=== PATIENT | female | born 1950 | race Caucasian/White ===

== ENCOUNTER 2019-09-25 16:45 | Inpatient (IN) | payer OTHER ==
--- OUTSIDE RECORDS SUMMARY | 2019-09-25 16:48 | XMS REPORT ---
:1950 [facility] [address] [place] [address] [place] [id number] Care Team Providers Name Role Phone AMYMARCOS LaneJAYLA BARNES Unavailable Unavailable TATE EVANS Unavailable Unavailable Payers Payer Name Policy Type Policy Number Effective Date Expiration Date Problems This patient has no known problems. Allergies, Adverse Reactions, Alerts This patient has no known allergies or adverse reactions. Medications This patient has no known medications. Results Test Description Test Time Test Comments Text Results Atomic Results Result Comments CBC W/PLT COUNT & AUTO DIFFERENTIAL 2018-03-22 06:22:00 Test Item Value Reference Range Comments WHITE BLOOD CELL COUNT (BEAKER) (test rmjk=558) 13.4 K/ L 3.5-10.5 RED BLOOD CELL COUNT (BEAKER) (test miad=804) 3.50 M/ L 3.93-5.22 HEMOGLOBIN (BEAKER) (test nczg=400) 10.1 GM/DL 11.2-15.7 HEMATOCRIT (BEAKER) (test ydba=813) 31.3 % 34.1-44.9 MEAN CORPUSCULAR VOLUME (BEAKER) (test jleq=417) 89.4 fL 79.4-94.8 MEAN CORPUSCULAR HEMOGLOBIN (BEAKER) (test zrdq=501) 28.9 pg 25.6-32.2 MEAN CORPUSCULAR HEMOGLOBIN CONC (BEAKER) (test nmod=450) 32.3 GM/DL 32.2- 35.5 RED CELL DISTRIBUTION WIDTH (BEAKER) (test isdd=562) 15.1 % 11.7-14.4 PLATELET COUNT (BEAKER) (test xhda=112) 179 K/CU MM 150-450 MEAN PLATELET VOLUME (BEAKER) (test judl=538) 11.9 fL 9.4-12.3 NUCLEATED RED BLOOD CELLS (BEAKER) (test hmjs=066) 0 /100 WBC 0-0 NEUTROPHILS RELATIVE PERCENT (BEAKER) (test vieq=537) 68 % LYMPHOCYTES RELATIVE PERCENT (BEAKER) (test tabs=067) 22 % MONOCYTES RELATIVE PERCENT (BEAKER) (test ivdh=523) 7 % EOSINOPHILS RELATIVE PERCENT (BEAKER) (test xntz=711) 2 % BASOPHILS RELATIVE PERCENT (BEAKER) (test kxgx=224) 0 % NEUTROPHILS ABSOLUTE COUNT (BEAKER) (test epth=795) 9.12 K/ L 1.56-6.13 LYMPHOCYTES ABSOLUTE COUNT (BEAKER) (test ucbf=566) 2.99 K/ L 1.18-3.74 MONOCYTES ABSOLUTE COUNT (BEAKER) (test jtza=113) 0.89 K/ L 0.24-0.36 EOSINOPHILS ABSOLUTE COUNT (BEAKER) (test xrnk=540) 0.31 K/ L 0.04-0.36 BASOPHILS ABSOLUTE COUNT (BEAKER) (test shzo=564) 0.03 K/ L 0.01-0.08 IMMATURE GRANULOCYTES-RELATIVE PERCENT (BEAKER) (test 0 % 0-1 zrop=6405) [id number] 06:11:00 Test Item Value Reference Range Comments MAGNESIUM (BEAKER) (test beqv=906) 1.9 mg/dL 1.6-2.6 BASIC METABOLIC [id number] 06:11:00 Test Item Value Reference Range Comments SODIUM (BEAKER) (test 139 meq/L 136-145 rvcn=060) POTASSIUM (BEAKER) (test 3.4 meq/L 3.5-5.1 ofql=348) CHLORIDE (BEAKER) (test 108 meq/L 98-107 feba=261) CO2 (BEAKER) (test 24 meq/L 22-29 sjpn=230) BLOOD UREA NITROGEN 8 mg/dL 7-21 (BEAKER) (test iayc=176) CREATININE (BEAKER) (test 0.84 mg/dL 0.57-1.25 evrz=245) GLUCOSE RANDOM (BEAKER) 91 mg/dL 70-105 (test mfpc=318) CALCIUM (BEAKER) (test 8.9 mg/dL 8.4-10.2 oais=463) EGFR (BEAKER) (test 68 mL/min/1.73 sq m ESTIMATED GFR IS NOT gvqt=2510) ACCURATE CREATININE CLEARANCE IN PREDICTING GLOMERULAR FILTRATION RATE. ESTIMATED GFR IS NOT APPLICABLE FOR DIALYSIS PATIENTS. [id number] 05:42:00 Test Item Value Reference Range Comments PARTIAL THROMBOPLASTIN TIME (BEAKER) (test 57.1 seconds 22.5-36.0 viyu=274) PROTHROMBIN TIME/[id number] 05:41:00 Test Item Value Reference Range Comments PROTIME (BEAKER) (test bfba=578) 15.0 seconds 11.7-14.7 INR (BEAKER) (test egzf=064) 1.2 <=5.9 RECOMMENDED COUMADIN/WARFARIN INR THERAPY RANGESSTANDARD DOSE: 2.0 - 3.0 Includes: PROPHYLAXIS forvenous thrombosis, systemic embolization; TREATMENT for venous thrombosis and/or pulmonary embolus.HIGH RISK: Target INR is 2.5-3.5 for patients with mechanical heart valves.RAD, CHEST, 1 VIEW, NON [id number] 05:05:00Reason for exam:->ptxShould this be performed at the bedside?-> YesFINAL REPORT Chest one view. Clinical history: Pneumothorax Comparison: Chest radiograph 03/21/2018 Technique: A single frontal view of the chest was obtained. Findings: Again seen is subcutaneous emphysema in the bilateral lower neck and bilateral chest wren. There is pneumomediastinum, grossly unchanged. There is mild diffuse bilateral interstitial prominence for which interstitial edema cannot be excluded. There is no pneumothorax or pleural effusion. The heart is normal size. The aorta is uncoiled. Signed: Mariela Moya MDReport Verified Date/Time: 03/22/2018 05: 05:40 Reading Location: [address] Transitional Reading Room RAD, CHEST, 1 VIEW, NON [id number] 07:26:00Reason for exam:->ptxShould this be performed at the bedside?->YesFINAL REPORT INDICATION: ptx COMPARISON: March 20, 2018 TECHNIQUE: Chest radiograph, single view, portable technique. FINDINGS / IMPRESSION: Pneumomediastinum and neck subcutaneousemphysema again demonstrated. No discrete pneumothorax. Cardiac and mediastinal contours unremarkable. No pulmonary edema, consolidation, or large pleural effusion. Signed: Robbin Villegas MDReport Verified Date/Time: 2017 07:26:14 Reading Location: [address] Ortho Consult Reading Room CBC W/PLT COUNT & AUTO [id number] 06:21:00 Test Item Value Reference Range Comments WHITE BLOOD CELL COUNT (BEAKER) (test ycfv=606) 16.0 K/ L 3.5-10.5 RED BLOOD CELL COUNT (BEAKER) (test xrof=439) 3.40 M/ L 3.93-5.22 HEMOGLOBIN (BEAKER) (test gshr=576) 9.7 GM/DL 11.2-15.7 HEMATOCRIT (BEAKER) (test wimk=918) 30.6 % 34.1-44.9 MEAN CORPUSCULAR VOLUME (BEAKER) (test tlar=181) 90.0 fL 79.4-94.8 MEAN CORPUSCULAR HEMOGLOBIN (BEAKER) (test 28.5 pg 25.6-32.2 nmml=438) MEAN CORPUSCULAR HEMOGLOBIN CONC (BEAKER) (test 31.7 GM/DL 32.2-35.5 joiy=100) RED CELL DISTRIBUTION WIDTH (BEAKER) (test 15.0 % 11.7-14.4 ebkm=647) PLATELET COUNT (BEAKER) (test abow=452) 180 K/CU MM 150-450 MEAN PLATELET VOLUME (BEAKER) (test nnqj=081) 11.8 fL 9.4-12.3 NUCLEATED RED BLOOD CELLS (BEAKER) (test 0 /100 WBC 0-0 taxf=383) NEUTROPHILS RELATIVE PERCENT (BEAKER) (test 82 % emgc=394) LYMPHOCYTES RELATIVE PERCENT (BEAKER) (test 12 % iein=020) MONOCYTES RELATIVE PERCENT (BEAKER) (test 5 % redb=782) EOSINOPHILS RELATIVE PERCENT (BEAKER) (test 0 % tpdo=320) BASOPHILS RELATIVE PERCENT (BEAKER) (test 0 % floh=183) NEUTROPHILS ABSOLUTE COUNT (BEAKER) (test 13.01 K/ L 1.56-6.13 fziu=133) LYMPHOCYTES ABSOLUTE COUNT (BEAKER) (test 1.93 K/ L 1.18-3.74 rvag=950) MONOCYTES ABSOLUTE COUNT (BEAKER) (test 0.87 K/ L 0.24-0.36 whmw=022) EOSINOPHILS ABSOLUTE COUNT (BEAKER) (test 0.07 K/ L 0.04-0.36 bfth=239) BASOPHILS ABSOLUTE COUNT (BEAKER) (test 0.03 K/ L 0.01-0.08 dnkq=206) IMMATURE GRANULOCYTES-RELATIVE PERCENT (BEAKER) 0 % 0-1 (test mmwl=5351) [id number] 06:04:00 Test Item Value Reference Range Comments MAGNESIUM (BEAKER) (test kvpp=398) 2.1 mg/dL 1.6-2.6 BASIC METABOLIC [id number] 06:04:00 Test Item Value Reference Range Comments SODIUM (BEAKER) (test 136 meq/L 136-145 pqyu=477) POTASSIUM (BEAKER) (test 3.4 meq/L 3.5-5.1 fslp=539) CHLORIDE (BEAKER) (test 107 meq/L 98-107 mcud=507) CO2 (BEAKER) (test 23 meq/L 22-29 ycwd=882) BLOOD UREA NITROGEN 15 mg/dL 7-21 (BEAKER) (test suoy=959) CREATININE (BEAKER) (test 1.00 mg/dL 0.57-1.25 fvwl=463) GLUCOSE RANDOM (BEAKER) 130 mg/dL 70-105 (test cdty=160) CALCIUM (BEAKER) (test 8.5 mg/dL 8.4-10.2 ncqr=802) EGFR (BEAKER) (test 55 mL/min/1.73 sq m ESTIMATED GFR IS NOT yhys=4137) ACCURATE CREATININE CLEARANCE IN PREDICTING GLOMERULAR FILTRATION RATE. ESTIMATED GFR IS NOT APPLICABLE FOR DIALYSIS PATIENTS. [id number] 05:26:00 Test Item Value Reference Range Comments PARTIAL THROMBOPLASTIN TIME (BEAKER) (test 50.3 seconds 22.5-36.0 xelr=412) PROTHROMBIN TIME/[id number] 05:25:00 Test Item Value Reference Range Comments PROTIME (RONEY) (test ezgy=759) 15.9 seconds 11.7-14.7 INR (BEAKER) (test qtlj=114) 1.3 <=5.9 RECOMMENDED COUMADIN/WARFARIN INR THERAPY RANGESSTANDARD DOSE: 2.0 - 3.0 Includes: PROPHYLAXIS forvenous thrombosis, systemic embolization; TREATMENT for venous thrombosis and/or pulmonary embolus.HIGH RISK: Target INR is 2.5-3.5 for patients with mechanical heart valves.FL, ESOPH, SWALLOW FUNCTION, WITH CINE OR [id number] 14:33:00Reason for exam:->s/p heller myotomy, kayleigh fundoplication before noon per Dr. Morelos, kevan notneed [employer] TEACHER for this examFINAL REPORT INDICATION:67-year-old female status post Heller myotomy and gastric fundoplication yesterday. Evaluate for leak. COMPARISON: None. TECHNIQUE: Fluoroscopic esophagram single contrast with Gastrografin.Fluoroscopy time 0.6 minutes.Acquired fluoroscopic images 7. FINDINGS:The patient was positioned supine in slight reverse Trendelenburg on the fluoroscopy table. The patient was administered 120 cc of Gastrografin by mouth. Contrast passed through the esophagus and through the wrap at the GE junction. No extraluminal contrast demonstrated. A few tertiary contractions noted. IMPRESSION:No evidence of leak after esophageal myotomy. Intact gastric wrap. Signed: Robbin Villegas MDReport Verified Date/Time: 03/20/2018 14:33: 42 Reading Location: [address] Ortho Consult Reading Room RAD, CHEST, 1 VIEW, NON [id number] 07:18:00Reason for exam:->ptxShould this be performed at the bedside?->YesFINAL REPORT Chest one view AP 03/20/2018 7:17 AM CLINICAL INDICATION: ptx COMPARISON: 03/19/2018 IMPRESSION: There are small volume right greater than left apical pneumothoraces. Subsegmental opacities in both mid and lower lung suggest atelectasis. There is pneumomediastinum. Cardiomediastinal contours are within normal limits for size. The central pulmonary vasculature is not engorged. There is subcutaneous emphysema in the overlying soft tissue. Signed: Scott Buchanan Verified Date/Time: 03/20/2018 07:18:12 Reading Location: [facility] Radiology Reading Room CBC W/PLT COUNT & AUTO [id number] 05: 56:00 Test Item Value Reference Range Comments WHITE BLOOD CELL COUNT (BEAKER) (test uxll=488) 14.4 K/ L 3.5-10.5 RED BLOOD CELL COUNT (BEAKER) (test enmd=385) 3.67 M/ L 3.93-5.22 HEMOGLOBIN (BEAKER) (test ekni=048) 10.4 GM/DL 11.2-15.7 HEMATOCRIT (BEAKER) (test sknu=353) 33.7 % 34.1-44.9 MEAN CORPUSCULAR VOLUME (BEAKER) (test mzpp=854) 91.8 fL 79.4-94.8 MEAN CORPUSCULAR HEMOGLOBIN (BEAKER) (test 28.3 pg 25.6-32.2 lcip=261) MEAN CORPUSCULAR HEMOGLOBIN CONC (BEAKER) (test 30.9 GM/DL 32.2-35.5 trmo=394) RED CELL DISTRIBUTION WIDTH (BEAKER) (test 15.0 % 11.7-14.4 kzby=486) PLATELET COUNT (BEAKER) (test jldf=735) 178 K/CU MM 150-450 MEAN PLATELET VOLUME (BEAKER) (test gxke=105) 11.9 fL 9.4-12.3 NUCLEATED RED BLOOD CELLS (BEAKER) (test 0 /100 WBC 0-0 ycpx=561) NEUTROPHILS RELATIVE PERCENT (BEAKER) (test 87 % ipse=369) LYMPHOCYTES RELATIVE PERCENT (BEAKER) (test 7 % xqde=634) MONOCYTES RELATIVE PERCENT (BEAKER) (test 5 % iptu=041) EOSINOPHILS RELATIVE PERCENT (BEAKER) (test 0 % gdtj=690) BASOPHILS RELATIVE PERCENT (BEAKER) (test 0 % muxd=305) NEUTROPHILS ABSOLUTE COUNT (BEAKER) (test 12.54 K/ L 1.56-6.13 cnfi=620) LYMPHOCYTES ABSOLUTE COUNT (BEAKER) (test 1.05 K/ L 1.18-3.74 czzv=873) MONOCYTES ABSOLUTE COUNT (BEAKER) (test 0.72 K/ L 0.24-0.36 tnzs=258) EOSINOPHILS ABSOLUTE COUNT (BEAKER) (test 0.00 K/ L 0.04-0.36 egtw=211) BASOPHILS ABSOLUTE COUNT (BEAKER) (test 0.02 K/ L 0.01-0.08 jatl=336) IMMATURE GRANULOCYTES-RELATIVE PERCENT (BEAKER) 0 % 0-1 (test zlim=5842) [id number] 05:52:00 Test Item Value Reference Range Comments MAGNESIUM (BEAKER) (test ychj=114) 2.1 mg/dL 1.6-2.6 BASIC METABOLIC [id number] 05:52:00 Test Item Value Reference Range Comments SODIUM (BEAKER) (test 138 meq/L 136-145 ooad=561) POTASSIUM (BEAKER) (test 4.2 meq/L 3.5-5.1 aevs=688) CHLORIDE (BEAKER) (test 109 meq/L 98-107 roli=483) CO2 (BEAKER) (test 20 meq/L 22-29 wazn=531) BLOOD UREA NITROGEN 17 mg/dL 7-21 (BEAKER) (test zfqa=806) CREATININE (BEAKER) (test 1.07 mg/dL 0.57-1.25 gphy=706) GLUCOSE RANDOM (BEAKER) 113 mg/dL 70-105 (test wgvs=695) CALCIUM (BEAKER) (test 8.5 mg/dL 8.4-10.2 yirg=398) EGFR (BEAKER) (test 51 mL/min/1.73 sq m ESTIMATED GFR IS NOT dwsa=6404) ACCURATE CREATININE CLEARANCE IN PREDICTING GLOMERULAR FILTRATION RATE. ESTIMATED GFR IS NOT APPLICABLE FOR DIALYSIS PATIENTS. PROTHROMBIN [id number] 05:28:00 Test Item Value Reference Range Comments PROTIME (BEAKER) (test hdek=278) 15.5 seconds 11.7-14.7 INR (BEAKER) (test mujk=284) 1.2 <=5.9 RECOMMENDED COUMADIN/WARFARIN INR THERAPY RANGESSTANDARD DOSE: 2.0 - 3.0 Includes: PROPHYLAXIS forvenous thrombosis, systemic embolization; TREATMENT for venous thrombosis and/or pulmonary embolus.HIGH RISK: Target INR is 2.5-3.5 for patients with mechanical heart valves.[id number] 05:28:00 Test Item Value Reference Range Comments PARTIAL THROMBOPLASTIN TIME (BEAKER) (test 32.3 seconds 22.5-36.0 bufu=776) BLOOD GAS, [id number] 05:25:00 Test Item Value Reference Range Comments PH ARTERIAL (BEAKER) (test nvda=972) 7.38 7.35-7.45 PCO2 ARTERIAL (BEAKER) (test wijr=071) 38 mmHg 35-45 PO2 ARTERIAL (BEAKER) (test lkjc=348) 149 mmHg 80-90 O2 SATURATION ARTERIAL (BEAKER) (test caoh=122) 98.9 % 96.0-97.0 HCO3 ARTERIAL (BEAKER) (test txgf=521) 22 mmol/L 21-29 BASE EXCESS ARTERIAL (BEAKER) (test iyvd=108) -2.6 mmol/L -2.0-3.0 PATIENT TEMPERATURE (BEAKER) (test wcwl=5301) 37.0 C FIO2 (BEAKER) (test wsba=0257) 28.0 % RAD, CHEST, 1 VIEW, NON [id number] 23:59:00[facility]->postop CXRShould this be performed at the bedside?-> YesFINAL REPORT Chest one view. Clinical history: postop CXR Comparison: March Discussion: A frontal chest is provided. Cardiomediastinal contours are unchanged. Subcutaneous emphysema is noted in the lower neck and bilateral anterior chest wall. There is also pneumomediastinum and probable mild pneumopericardium. There is a small right apical pneumothorax. No definite pneumothorax is seen on the left. Mild bibasilar atelectasis is present. No discrete consolidation, or large effusion. No acute bony abnormality. Findings discussed with patient's nurse Gauri. Signed:Roldan Persaud Verified Date/Time: 03/19/2018 23:59:46 Reading Location: [address] Consult Reading Room [id number] 19:21:00 Test Item Value Reference Range Comments MAGNESIUM (BEAKER) (test isix=397) 2.0 mg/dL 1.6-2.6 BASIC METABOLIC [id number] 19:21:00 Test Item Value Reference Range Comments SODIUM (BEAKER) (test 139 meq/L 136-145 zehk=205) POTASSIUM (BEAKER) (test 3.8 meq/L 3.5-5.1 nbzi=556) CHLORIDE (BEAKER) (test 110 meq/L 98-107 vfgq=277) CO2 (BEAKER) (test 19 meq/L 22-29 kujf=172) BLOOD UREA NITROGEN 15 mg/dL 7-21 (BEAKER) (test snfe=641) CREATININE (BEAKER) (test 1.14 mg/dL 0.57-1.25 zfer=387) GLUCOSE RANDOM (BEAKER) 133 mg/dL 70-105 (test kzaa=451) CALCIUM (BEAKER) (test 8.2 mg/dL 8.4-10.2 qtli=556) EGFR (BEAKER) (test 48 mL/min/1.73 sq m ESTIMATED GFR IS NOT awmf=4279) ACCURATE CREATININE CLEARANCE IN PREDICTING GLOMERULAR FILTRATION RATE. ESTIMATED GFR IS NOT APPLICABLE FOR DIALYSIS PATIENTS. [id number] 19:12:00 Test Item Value Reference Range Comments PARTIAL THROMBOPLASTIN TIME (BEAKER) (test 30.1 seconds 22.5-36.0 wecd=602) PROTHROMBIN [id number] 19:11:00 Test Item Value Reference Range Comments PROTIME (BEAKER) (test coqo=430) 15.6 seconds 11.7-14.7 INR (BEAKER) (test clrr=011) 1.2 <=5.9 RECOMMENDED COUMADIN/WARFARIN INR THERAPY RANGESSTANDARD DOSE: 2.0 - 3.0 Includes: PROPHYLAXIS forvenous thrombosis, systemic embolization; TREATMENT for venous thrombosis and/or pulmonary embolus.HIGH RISK: Target INR is 2.5-3.5 for patients with mechanical heart valves.CBC W/PLT COUNT & AUTO [id number] 19:07:00 Test Item Value Reference Range Comments WHITE BLOOD CELL COUNT (BEAKER) (test qwat=703) 14.7 K/ L 3.5-10.5 RED BLOOD CELL COUNT (BEAKER) (test qxjr=879) 3.64 M/ L 3.93-5.22 HEMOGLOBIN (BEAKER) (test avyb=239) 10.4 GM/DL 11.2-15.7 HEMATOCRIT (BEAKER) (test jpvd=316) 32.8 % 34.1-44.9 MEAN CORPUSCULAR VOLUME (BEAKER) (test gntz=514) 90.1 fL 79.4-94.8 MEAN CORPUSCULAR HEMOGLOBIN (BEAKER) (test 28.6 pg 25.6-32.2 zeir=829) MEAN CORPUSCULAR HEMOGLOBIN CONC (BEAKER) (test 31.7 GM/DL 32.2-35.5 wphn=214) RED CELL DISTRIBUTION WIDTH (BEAKER) (test 14.8 % 11.7-14.4 numo=159) PLATELET COUNT (BEAKER) (test fjbf=361) 169 K/CU MM 150-450 MEAN PLATELET VOLUME (BEAKER) (test kplt=128) 11.1 fL 9.4-12.3 NUCLEATED RED BLOOD CELLS (BEAKER) (test 0 /100 WBC 0-0 jhba=152) NEUTROPHILS RELATIVE PERCENT (BEAKER) (test 83 % enim=827) LYMPHOCYTES RELATIVE PERCENT (BEAKER) (test 9 % yder=798) MONOCYTES RELATIVE PERCENT (BEAKER) (test 7 % yput=299) EOSINOPHILS RELATIVE PERCENT (BEAKER) (test 0 % ysed=450) BASOPHILS RELATIVE PERCENT (BEAKER) (test 0 % aury=993) NEUTROPHILS ABSOLUTE COUNT (BEAKER) (test 12.22 K/ L 1.56-6.13 zvtd=518) LYMPHOCYTES ABSOLUTE COUNT (BEAKER) (test 1.30 K/ L 1.18-3.74 nifc=416) MONOCYTES ABSOLUTE COUNT (BEAKER) (test 1.06 K/ L 0.24-0.36 ugpd=089) EOSINOPHILS ABSOLUTE COUNT (BEAKER) (test 0.06 K/ L 0.04-0.36 yuxi=843) BASOPHILS ABSOLUTE COUNT (BEAKER) (test 0.02 K/ L 0.01-0.08 zgxr=689) IMMATURE GRANULOCYTES-RELATIVE PERCENT (BEAKER) 0 % 0-1 (test qwxl=5732) CALCIUM, [id number] 18:57:00 Test Item Value Reference Range Comments CALCIUM IONIZED (BEAKER) (test kscw=178) 1.07 mmol/L 1.12-1.27 PH, BLOOD (BEAKER) (test lebq=6646) 7.31 POCT-GLUCOSE [id number] 11:08:00 Test Item Value Reference Range Comments POC-GLUCOSE METER (BEAKER) 98 mg/dL 70-110 TESTED AT [facility] [address] [facility] (test uebp=3644) [place] [address] RAD, CHEST, 2 [id number] 12:11:00Reason for exam:->preopFINAL REPORT PA and lateral chest HISTORY: Preoperative. Dysphagia. GERD. COMPARISON: 05/12/2017 IMPRESSION:Intact skeleton. Heart size normal. New scattered faint nodular opacities throughout both lungs are nonspecific and may reflect an underlying infectious or inflammatory etiology, such as from aspiration pneumonitis. No effusion or pneumothorax. Chest CT can be performed for further characterization. Findings were discussed with Dr. Rodriguez by telephone at 12:10 p.m. on 03/16/2018. Signed: David Lang MDReport Verified Date/Time: 03/16/2018 12:11:07 Reading Location: [address] Radiology Reading Room Electronically signed by: DAVID LANG M.D. on 2017 12:11 PMCOMPREHENSIVE METABOLIC [id number] 12:03:00 Test Item Value Reference Range Comments TOTAL PROTEIN (BEAKER) 7.6 gm/dL 6.0-8.3 (test ygaw=954) ALBUMIN (BEAKER) (test 4.1 g/dL 3.5-5.0 ypth=5483) ALKALINE PHOSPHATASE 88 U/L 40-150 (BEAKER) (test nnzk=202) BILIRUBIN TOTAL (BEAKER) 0.4 mg/dL 0.2-1.2 (test lzzm=308) SODIUM (BEAKER) (test 136 meq/L 136-145 egqg=743) POTASSIUM (BEAKER) (test 4.2 meq/L 3.5-5.1 zxml=415) CHLORIDE (BEAKER) (test 104 meq/L 98-107 irle=775) CO2 (BEAKER) (test 25 meq/L 22-29 ghxg=883) BLOOD UREA NITROGEN 13 mg/dL 7-21 (BEAKER) (test frxl=737) CREATININE (BEAKER) (test 0.98 mg/dL 0.57-1.25 oktd=206) GLUCOSE RANDOM (BEAKER) 88 mg/dL 70-105 (test eveo=933) CALCIUM (BEAKER) (test 9.3 mg/dL 8.4-10.2 jawj=513) AST (SGOT) (BEAKER) (test 14 U/L 5-34 jymh=560) ALT (SGPT) (BEAKER) (test 12 U/L 6-55 hxjo=975) EGFR (BEAKER) (test 57 mL/min/1.73 sq m ESTIMATED GFR IS NOT qbym=8691) ACCURATE CREATININE CLEARANCE IN PREDICTING GLOMERULAR FILTRATION RATE. ESTIMATED GFR IS NOT APPLICABLE FOR DIALYSIS PATIENTS. [id number] 11:54:00 Test Item Value Reference Range Comments PROTIME (BEAKER) (test ojdh=642) 14.6 seconds 11.7-14.7 INR (BEAKER) (test uhjh=366) 1.1 <=5.9 PARTIAL THROMBOPLASTIN TIME (BEAKER) (test 33.3 seconds 22.5-36.0 qflc=809) RECOMMENDED COUMADIN/WARFARIN INR THERAPY RANGESSTANDARD DOSE: 2.0 - 3.0 Includes: PROPHYLAXIS forvenous thrombosis, systemic embolization; TREATMENT for venous thrombosis and/or pulmonary embolus.HIGH RISK: Target INR is 2.5-3.5 for patients with mechanical heart valves.CBC W/PLT COUNT & AUTO [id number] 11:41:00 Test Item Value Reference Range Comments WHITE BLOOD CELL COUNT (BEAKER) (test skyw=162) 9.7 K/ L 3.5-10.5 RED BLOOD CELL COUNT (BEAKER) (test gxuc=152) 4.10 M/ L 3.93-5.22 HEMOGLOBIN (BEAKER) (test qofq=510) 11.6 GM/DL 11.2-15.7 HEMATOCRIT (BEAKER) (test gbfs=792) 36.6 % 34.1-44.9 MEAN CORPUSCULAR VOLUME (BEAKER) (test nscf=816) 89.3 fL 79.4-94.8 MEAN CORPUSCULAR HEMOGLOBIN (BEAKER) (test 28.3 pg 25.6-32.2 bxwd=147) MEAN CORPUSCULAR HEMOGLOBIN CONC (BEAKER) (test 31.7 GM/DL 32.2-35.5 yvna=776) RED CELL DISTRIBUTION WIDTH (BEAKER) (test 14.9 % 11.7-14.4 bcdq=817) PLATELET COUNT (BEAKER) (test viqm=482) 214 K/CU MM 150-450 MEAN PLATELET VOLUME (BEAKER) (test crsm=046) 11.8 fL 9.4-12.3 NUCLEATED RED BLOOD CELLS (BEAKER) (test 0 /100 WBC 0-0 lvyq=626) NEUTROPHILS RELATIVE PERCENT (BEAKER) (test 66 % vkkn=483) LYMPHOCYTES RELATIVE PERCENT (BEAKER) (test 22 % sytz=024) MONOCYTES RELATIVE PERCENT (BEAKER) (test 10 % vumy=136) EOSINOPHILS RELATIVE PERCENT (BEAKER) (test 1 % jysn=918) BASOPHILS RELATIVE PERCENT (BEAKER) (test 1 % mxep=928) NEUTROPHILS ABSOLUTE COUNT (BEAKER) (test 6.45 K/ L 1.56-6.13 xasu=509) LYMPHOCYTES ABSOLUTE COUNT (BEAKER) (test 2.15 K/ L 1.18-3.74 gdom=064) MONOCYTES ABSOLUTE COUNT (BEAKER) (test 0.94 K/ L 0.24-0.36 bkqi=350) EOSINOPHILS ABSOLUTE COUNT (BEAKER) (test 0.09 K/ L 0.04-0.36 kghw=535) BASOPHILS ABSOLUTE COUNT (BEAKER) (test 0.06 K/ L 0.01-0.08 rsmo=208) IMMATURE GRANULOCYTES-RELATIVE PERCENT (BEAKER) 0 % 0-1 (test oqah=2010) BASIC METABOLIC [id number] 06:19:00 Test Item Value Reference Range Comments SODIUM (BEAKER) (test 139 meq/L 136-145 yrtp=156) POTASSIUM (BEAKER) (test 3.9 meq/L 3.5-5.1 oqqe=158) CHLORIDE (BEAKER) (test 109 meq/L 98-107 noor=987) CO2 (BEAKER) (test 22 meq/L 22-29 iyvo=280) BLOOD UREA NITROGEN 14 mg/dL 7-21 (BEAKER) (test wxuq=816) CREATININE (BEAKER) (test 0.87 mg/dL 0.57-1.25 mbba=451) GLUCOSE RANDOM (BEAKER) 95 mg/dL 70-105 (test ztvt=224) CALCIUM (BEAKER) (test 9.2 mg/dL 8.4-10.2 btny=332) EGFR (BEAKER) (test 65 mL/min/1.73 sq m ESTIMATED GFR IS NOT rdle=5931) ACCURATE CREATININE CLEARANCE IN PREDICTING GLOMERULAR FILTRATION RATE. ESTIMATED GFR IS NOT APPLICABLE FOR DIALYSIS PATIENTS. CBC W/PLT COUNT & AUTO [id number] 06:01:00 Test Item Value Reference Range Comments WHITE BLOOD CELL COUNT (BEAKER) (test gctj=894) 8.4 K/ L 4.0-10.0 RED BLOOD CELL COUNT (BEAKER) (test olyk=042) 3.82 M/ L 4.00-5.00 HEMOGLOBIN (BEAKER) (test hifq=689) 11.9 GM/DL 12.0-15.0 HEMATOCRIT (BEAKER) (test eqdp=651) 35.8 % 36.0-45.0 MEAN CORPUSCULAR VOLUME (BEAKER) (test rshk=696) 93.6 fL 82.0-99.0 MEAN CORPUSCULAR HEMOGLOBIN (BEAKER) (test 31.0 pg 27.0-33.0 evtp=324) MEAN CORPUSCULAR HEMOGLOBIN CONC (BEAKER) (test 33.1 GM/DL 32.0-36.0 kcjq=504) RED CELL DISTRIBUTION WIDTH (BEAKER) (test 12.7 % 10.3-14.2 pygc=337) PLATELET COUNT (BEAKER) (test qzts=070) 153 K/CU MM 150-430 MEAN PLATELET VOLUME (BEAKER) (test lojn=043) 8.8 fL 6.5-10.5 NUCLEATED RED BLOOD CELLS (BEAKER) (test 0 /100 WBC 0-0 fgjf=334) NEUTROPHILS RELATIVE PERCENT (BEAKER) (test 54 % rlnz=902) LYMPHOCYTES RELATIVE PERCENT (BEAKER) (test 35 % sadj=507) MONOCYTES RELATIVE PERCENT (BEAKER) (test 8 % igam=131) EOSINOPHILS RELATIVE PERCENT (BEAKER) (test 3 % bqfy=336) BASOPHILS RELATIVE PERCENT (BEAKER) (test 1 % eywe=987) NEUTROPHILS ABSOLUTE COUNT (BEAKER) (test 4.51 K/ L 1.80-8.00 ffuw=239) LYMPHOCYTES ABSOLUTE COUNT (BEAKER) (test 2.94 K/ L 1.48-4.50 sxdf=741) MONOCYTES ABSOLUTE COUNT (BEAKER) (test 0.65 K/ L 0.00-1.30 mpyh=329) EOSINOPHILS ABSOLUTE COUNT (BEAKER) (test 0.26 K/ L 0.00-0.50 fkfl=760) BASOPHILS ABSOLUTE COUNT (BEAKER) (test 0.06 K/ L 0.00-0.20 hxqj=415) 0.00CBC W/PLT COUNT & AUTO [id number] 06:59:00 Test Item Value Reference Range Comments WHITE BLOOD CELL COUNT (BEAKER) (test hooi=062) 9.0 K/ L 4.0-10.0 RED BLOOD CELL COUNT (BEAKER) (test bicx=865) 4.00 M/ L 4.00-5.00 HEMOGLOBIN (BEAKER) (test wmfz=072) 12.2 GM/DL 12.0-15.0 HEMATOCRIT (BEAKER) (test wwdb=574) 37.7 % 36.0-45.0 MEAN CORPUSCULAR VOLUME (BEAKER) (test byia=776) 94.1 fL 82.0-99.0 MEAN CORPUSCULAR HEMOGLOBIN (BEAKER) (test 30.5 pg 27.0-33.0 fwlb=003) MEAN CORPUSCULAR HEMOGLOBIN CONC (BEAKER) (test 32.5 GM/DL 32.0-36.0 lapz=812) RED CELL DISTRIBUTION WIDTH (BEAKER) (test 12.9 % 10.3-14.2 sdqb=177) PLATELET COUNT (BEAKER) (test lfjt=901) 165 K/CU MM 150-430 MEAN PLATELET VOLUME (BEAKER) (test eaxs=007) 9.3 fL 6.5-10.5 NUCLEATED RED BLOOD CELLS (BEAKER) (test 0 /100 WBC 0-0 ydeu=000) NEUTROPHILS RELATIVE PERCENT (BEAKER) (test 56 % krcf=011) LYMPHOCYTES RELATIVE PERCENT (BEAKER) (test 31 % vljr=032) MONOCYTES RELATIVE PERCENT (BEAKER) (test 9 % vgkb=738) EOSINOPHILS RELATIVE PERCENT (BEAKER) (test 3 % iomp=173) BASOPHILS RELATIVE PERCENT (BEAKER) (test 1 % rkhf=451) NEUTROPHILS ABSOLUTE COUNT (BEAKER) (test 5.07 K/ L 1.80-8.00 dghz=551) LYMPHOCYTES ABSOLUTE COUNT (BEAKER) (test 2.78 K/ L 1.48-4.50 cxtf=655) MONOCYTES ABSOLUTE COUNT (BEAKER) (test 0.81 K/ L 0.00-1.30 hlng=479) EOSINOPHILS ABSOLUTE COUNT (BEAKER) (test 0.29 K/ L 0.00-0.50 asky=211) BASOPHILS ABSOLUTE COUNT (BEAKER) (test 0.07 K/ L 0.00-0.20 ukkl=758) 0.00BASIC METABOLIC [id number] 06:39:00 Test Item Value Reference Range Comments SODIUM (BEAKER) (test 137 meq/L 136-145 mlor=476) POTASSIUM (BEAKER) (test 4.1 meq/L 3.5-5.1 mznu=348) CHLORIDE (BEAKER) (test 108 meq/L 98-107 oeta=407) CO2 (BEAKER) (test 23 meq/L 22-29 cxag=302) BLOOD UREA NITROGEN 14 mg/dL 7-21 (BEAKER) (test uqyn=958) CREATININE (BEAKER) (test 0.86 mg/dL 0.57-1.25 mjnp=374) GLUCOSE RANDOM (BEAKER) 88 mg/dL 70-105 (test vurr=880) CALCIUM (BEAKER) (test 9.0 mg/dL 8.4-10.2 gzeo=925) EGFR (BEAKER) (test 66 mL/min/1.73 sq m ESTIMATED GFR IS NOT icrs=7717) ACCURATE CREATININE CLEARANCE IN PREDICTING GLOMERULAR FILTRATION RATE. ESTIMATED GFR IS NOT APPLICABLE FOR DIALYSIS PATIENTS. PROTEIN ELECTROPHORESIS, [id number] 12:03:00 Test Item Value Reference Range Comments ALBUMIN FRACTION (BEAKER) 3.6 g/dL 3.5-5.5 (test pnqh=280) ALPHA 1 FRACTION (BEAKER) 0.2 g/dL 0.2-0.4 (test vyfv=190) ALPHA 2 FRACTION (BEAKER) 0.6 g/dL 0.5-0.9 (test lccc=125) BETA FRACTION (BEAKER) (test 0.9 g/dL 0.6-1.1 ktos=378) GAMMA GLOBULIN FRACTION 1.5 g/dL 0.7-1.7 (BEAKER) (test dszi=278) INTERPRETATION-119 (BEAKER) All fractions present in (test bffp=8290) expected distribution. No monoclonal bands detected. [id number] (BEAKER) Desi Calvin MD (test gigm=8116) (electronic signature) PROTEIN TOTAL SERUM, SPEP 6.8 gm/dL 6.0-8.3 (BEAKER) (test detz=3847) BASIC METABOLIC [id number] 07:22:00 Test Item Value Reference Range Comments SODIUM (BEAKER) (test 139 meq/L 136-145 mjlg=713) POTASSIUM (BEAKER) (test 4.0 meq/L 3.5-5.1 kcom=790) CHLORIDE (BEAKER) (test 108 meq/L 98-107 nyrp=473) CO2 (BEAKER) (test 23 meq/L 22-29 bcip=338) BLOOD UREA NITROGEN 16 mg/dL 7-21 (BEAKER) (test tdek=824) CREATININE (BEAKER) (test 0.88 mg/dL 0.57-1.25 pidu=818) GLUCOSE RANDOM (BEAKER) 96 mg/dL 70-105 (test fkbr=533) CALCIUM (BEAKER) (test 9.3 mg/dL 8.4-10.2 rybc=281) EGFR (BEAKER) (test 64 mL/min/1.73 sq m ESTIMATED GFR IS NOT vnzs=2568) ACCURATE CREATININE CLEARANCE IN PREDICTING GLOMERULAR FILTRATION RATE. ESTIMATED GFR IS NOT APPLICABLE FOR DIALYSIS PATIENTS. CBC W/PLT COUNT & AUTO [id number] 07:16:00 Test Item Value Reference Range Comments WHITE BLOOD CELL COUNT (BEAKER) (test mncn=658) 8.9 K/ L 4.0-10.0 RED BLOOD CELL COUNT (BEAKER) (test llzc=077) 4.08 M/ L 4.00-5.00 HEMOGLOBIN (BEAKER) (test mhub=411) 12.1 GM/DL 12.0-15.0 HEMATOCRIT (BEAKER) (test ukin=780) 38.3 % 36.0-45.0 MEAN CORPUSCULAR VOLUME (BEAKER) (test uvrn=685) 94.0 fL 82.0-99.0 MEAN CORPUSCULAR HEMOGLOBIN (BEAKER) (test 29.7 pg 27.0-33.0 ggud=893) MEAN CORPUSCULAR HEMOGLOBIN CONC (BEAKER) (test 31.7 GM/DL 32.0-36.0 leib=905) RED CELL DISTRIBUTION WIDTH (BEAKER) (test 12.9 % 10.3-14.2 ohgu=416) PLATELET COUNT (BEAKER) (test oyxo=642) 160 K/CU MM 150-430 MEAN PLATELET VOLUME (BEAKER) (test luqg=412) 9.0 fL 6.5-10.5 NUCLEATED RED BLOOD CELLS (BEAKER) (test 0 /100 WBC 0-0 cdhs=044) NEUTROPHILS RELATIVE PERCENT (BEAKER) (test 57 % uyol=054) LYMPHOCYTES RELATIVE PERCENT (BEAKER) (test 30 % mkav=516) MONOCYTES RELATIVE PERCENT (BEAKER) (test 9 % kaxr=719) EOSINOPHILS RELATIVE PERCENT (BEAKER) (test 4 % fnuq=697) BASOPHILS RELATIVE PERCENT (BEAKER) (test 1 % fgra=176) NEUTROPHILS ABSOLUTE COUNT (BEAKER) (test 5.07 K/ L 1.80-8.00 hxpq=124) LYMPHOCYTES ABSOLUTE COUNT (BEAKER) (test 2.69 K/ L 1.48-4.50 mtwl=094) MONOCYTES ABSOLUTE COUNT (BEAKER) (test 0.77 K/ L 0.00-1.30 ajgk=940) EOSINOPHILS ABSOLUTE COUNT (BEAKER) (test 0.31 K/ L 0.00-0.50 vczk=173) BASOPHILS ABSOLUTE COUNT (BEAKER) (test 0.06 K/ L 0.00-0.20 bbjl=613) 0.00BASI METABOLIC [id number] 04:49:00 Test Item Value Reference Range Comments SODIUM (BEAKER) (test 138 meq/L 136-145 imoz=499) POTASSIUM (BEAKER) (test 3.8 meq/L 3.5-5.1 wkyo=164) CHLORIDE (BEAKER) (test 108 meq/L 98-107 usyb=803) CO2 (BEAKER) (test 21 meq/L 22-29 kcpd=751) BLOOD UREA NITROGEN 18 mg/dL 7-21 (BEAKER) (test ojea=272) CREATININE (BEAKER) (test 1.01 mg/dL 0.57-1.25 ywwq=245) GLUCOSE RANDOM (BEAKER) 101 mg/dL 70-105 (test sfiz=739) CALCIUM (BEAKER) (test 8.9 mg/dL 8.4-10.2 phhg=980) EGFR (BEAKER) (test 55 mL/min/1.73 sq m ESTIMATED GFR IS NOT nxps=0194) ACCURATE CREATININE CLEARANCE IN PREDICTING GLOMERULAR FILTRATION RATE. ESTIMATED GFR IS NOT APPLICABLE FOR DIALYSIS PATIENTS. CBC W/PLT COUNT & AUTO [id number] 04:24:00 Test Item Value Reference Range Comments WHITE BLOOD CELL COUNT (BEAKER) (test enby=256) 8.6 K/ L 4.0-10.0 RED BLOOD CELL COUNT (BEAKER) (test bctz=807) 3.75 M/ L 4.00-5.00 HEMOGLOBIN (BEAKER) (test gdlg=500) 11.8 GM/DL 12.0-15.0 HEMATOCRIT (BEAKER) (test zhir=361) 34.6 % 36.0-45.0 MEAN CORPUSCULAR VOLUME (BEAKER) (test jxuh=068) 92.2 fL 82.0-99.0 MEAN CORPUSCULAR HEMOGLOBIN (BEAKER) (test 31.4 pg 27.0-33.0 kssx=068) MEAN CORPUSCULAR HEMOGLOBIN CONC (BEAKER) (test 34.1 GM/DL 32.0-36.0 mirg=622) RED CELL DISTRIBUTION WIDTH (BEAKER) (test 14.0 % 10.3-14.2 tizt=151) PLATELET COUNT (BEAKER) (test ozmu=726) 149 K/CU MM 150-430 MEAN PLATELET VOLUME (BEAKER) (test pgrl=796) 8.9 fL 6.5-10.5 NUCLEATED RED BLOOD CELLS (BEAKER) (test 0 /100 WBC 0-0 ebli=551) NEUTROPHILS RELATIVE PERCENT (BEAKER) (test 54 % suyv=320) LYMPHOCYTES RELATIVE PERCENT (BEAKER) (test 34 % lphf=797) MONOCYTES RELATIVE PERCENT (BEAKER) (test 9 % ufbq=790) EOSINOPHILS RELATIVE PERCENT (BEAKER) (test 3 % aygb=667) BASOPHILS RELATIVE PERCENT (BEAKER) (test 0 % amxv=858) NEUTROPHILS ABSOLUTE COUNT (BEAKER) (test 4.62 K/ L 1.80-8.00 cisj=438) LYMPHOCYTES ABSOLUTE COUNT (BEAKER) (test 2.91 K/ L 1.48-4.50 btjl=138) MONOCYTES ABSOLUTE COUNT (BEAKER) (test 0.74 K/ L 0.00-1.30 hysq=678) EOSINOPHILS ABSOLUTE COUNT (BEAKER) (test 0.28 K/ L 0.00-0.50 eajp=880) BASOPHILS ABSOLUTE COUNT (BEAKER) (test 0.04 K/ L 0.00-0.20 zaez=399) 0.00VITAMIN [id number] 19:06:00 Test Item Value Reference Range Comments VITAMIN B12 (BEAKER) (test rxec=131) 1150 pg/mL 213-816 TSH/FREE T4 IF [id number] 19:00:00 Test Item Value Reference Range Comments THYROID STIMULATING HORMONE (BEAKER) (test 0.39 uIU/mL 0.35-4.94 jdqu=552) TROPONIN [id number] 18:44:00 Test Item Value Reference Range Comments TROPONIN I (BEAKER) (test aoii=532) < ng/mL 0.00-0.03 Effective 09/27/2014: Reference Range ChangeNew: 0.00-0.03 Previous 0.00- 0.15Troponin I (TnI) levels must be interpreted in the context of the presenting symptoms and the clinical findings. Elevated TnI levels indicate myocardial damage, but are not specific for ischemic heart disease. Elevated TnI levels are seen in patients with other cardiac conditions (including myocarditis and congestive heartfailure), and slight TnI elevations occur in patients with other conditions, including sepsis, renalfailure, acidosis, acute neurological disease, and persistent tachyarrhythmia.CREATINE KINASE (CK), TOTAL AND [id number] 14:57:00 Test Item Value Reference Range Comments CREATINE KINASE TOTAL (BEAKER) (test ujxo=347) 62 U/L 29-200 CREATINE KINASE-MB (BEAKER) (test pjpn=784) 0.6 ng/mL 0.0-6.6 CREATINE KINASE-MB INDEX (BEAKER) (test uuue=804) 1.0 % Effective 09/27/2014: CK-MB Reference Range ChangeNew: 0.0-6.6 Previous: 0.0- 4.9CK-MB Reference Range:<6.7 Normal6.7-10.0 Borderline>10.0 AbnormalTROPONIN [id number] 14:57:00 Test Item Value Reference Range Comments TROPONIN I (BEAKER) (test rzzu=669) < ng/mL 0.00-0.03 Effective 09/27/2014: Reference Range ChangeNew: 0.00-0.03 Previous 0.00- 0.15Troponin I (TnI) levels must be interpreted in the context of the presenting symptoms and the clinical findings. Elevated TnI levels indicate myocardial damage, but are not specific for ischemic heart disease. Elevated TnI levels are seen in patients with other cardiac conditions (including myocarditis and congestive heartfailure), and slight TnI elevations occur in patients with other conditions, including sepsis, renalfailure, acidosis, acute neurological disease, and persistent tachyarrhythmia.PROTHROMBIN [id number] 14:53:00 Test Item Value Reference Range Comments PROTIME (BEAKER) (test vtnz=616) 14.4 seconds 11.7-14.7 INR (BEAKER) (test mkyq=616) 1.1 <=5.9 RECOMMENDED COUMADIN/WARFARIN INR THERAPY RANGESSTANDARD DOSE: 2.0 - 3.0 Includes: PROPHYLAXIS forvenous thrombosis, systemic embolization; TREATMENT for venous thrombosis and/or pulmonary embolus.HIGH RISK: Target INR is 2.5-3.5 for patients with mechanical heart valves.HEMOGLOBIN [id number] 14:52:00 Test Item Value Reference Range Comments HEMOGLOBIN A1C (BEAKER) (test szki=213) 5.7 % 4.3-6.1 [id number] 14:50:00 Test Item Value Reference Range Comments MAGNESIUM (BEAKER) (test tevp=859) 2.0 mg/dL 1.6-2.6 BASIC METABOLIC [id number] 14:50:00 Test Item Value Reference Range Comments SODIUM (BEAKER) (test 138 meq/L 136-145 evbj=517) POTASSIUM (BEAKER) (test 3.8 meq/L 3.5-5.1 bjic=957) CHLORIDE (BEAKER) (test 104 meq/L 98-107 msmq=602) CO2 (BEAKER) (test 25 meq/L 22-29 fffr=469) BLOOD UREA NITROGEN 15 mg/dL 7-21 (BEAKER) (test bwzt=344) CREATININE (BEAKER) (test 0.93 mg/dL 0.57-1.25 zncg=166) GLUCOSE RANDOM (BEAKER) 92 mg/dL 70-105 (test ufvr=719) CALCIUM (BEAKER) (test 9.7 mg/dL 8.4-10.2 qgqz=721) EGFR (BEAKER) (test 60 mL/min/1.73 sq m ESTIMATED GFR IS NOT mmgk=3206) ACCURATE CREATININE CLEARANCE IN PREDICTING GLOMERULAR FILTRATION RATE. ESTIMATED GFR IS NOT APPLICABLE FOR DIALYSIS PATIENTS. HEPATIC FUNCTION [id number] 14:50:00 Test Item Value Reference Range Comments TOTAL PROTEIN (BEAKER) (test zrbr=445) 7.5 gm/dL 6.0-8.3 ALBUMIN (BEAKER) (test qgth=0992) 4.0 g/dL 3.5-5.0 BILIRUBIN TOTAL (BEAKER) (test qtxe=689) 0.5 mg/dL 0.2-1.2 BILIRUBIN DIRECT (BEAKER) (test ezmi=513) 0.2 mg/dL 0.1-0.5 ALKALINE PHOSPHATASE (BEAKER) (test rspn=842) 79 U/L 40-150 AST (SGOT) (BEAKER) (test pqxh=548) 24 U/L 5-34 ALT (SGPT) (BEAKER) (test yfjc=095) 23 U/L 6-55 CBC W/PLT COUNT & AUTO [id number] 14:46:00 Test Item Value Reference Range Comments WHITE BLOOD CELL COUNT (BEAKER) (test cssb=678) 10.3 K/ L 4.0-10.0 RED BLOOD CELL COUNT (BEAKER) (test menk=504) 4.18 M/ L 4.00-5.00 HEMOGLOBIN (BEAKER) (test gwji=365) 12.8 GM/DL 12.0-15.0 HEMATOCRIT (BEAKER) (test quph=219) 38.6 % 36.0-45.0 MEAN CORPUSCULAR VOLUME (BEAKER) (test iryw=068) 92.5 fL 82.0-99.0 MEAN CORPUSCULAR HEMOGLOBIN (BEAKER) (test 30.7 pg 27.0-33.0 syjc=471) MEAN CORPUSCULAR HEMOGLOBIN CONC (BEAKER) (test 33.2 GM/DL 32.0-36.0 icog=169) RED CELL DISTRIBUTION WIDTH (BEAKER) (test 14.0 % 10.3-14.2 vsta=788) PLATELET COUNT (BEAKER) (test tfhw=232) 165 K/CU MM 150-430 MEAN PLATELET VOLUME (BEAKER) (test jcss=374) 9.0 fL 6.5-10.5 NUCLEATED RED BLOOD CELLS (BEAKER) (test 0 /100 WBC 0-0 kqhw=532) NEUTROPHILS RELATIVE PERCENT (BEAKER) (test 66 % dxih=228) LYMPHOCYTES RELATIVE PERCENT (BEAKER) (test 26 % noqm=120) MONOCYTES RELATIVE PERCENT (BEAKER) (test 6 % eini=615) EOSINOPHILS RELATIVE PERCENT (BEAKER) (test 1 % wljn=080) BASOPHILS RELATIVE PERCENT (BEAKER) (test 1 % nvoi=209) NEUTROPHILS ABSOLUTE COUNT (BEAKER) (test 6.84 K/ L 1.80-8.00 bshl=862) LYMPHOCYTES ABSOLUTE COUNT (BEAKER) (test 2.63 K/ L 1.48-4.50 epdr=583) MONOCYTES ABSOLUTE COUNT (BEAKER) (test 0.61 K/ L 0.00-1.30 hcpk=856) EOSINOPHILS ABSOLUTE COUNT (BEAKER) (test 0.15 K/ L 0.00-0.50 uwja=062) BASOPHILS ABSOLUTE COUNT (BEAKER) (test 0.08 K/ L 0.00-0.20 ozpy=548) 0.00
[2019-09-25] MEDS ORDERED: ACETAMINOPHEN 325 MG TABLET ONE (17:29)
[2019-09-25] MEDS ORDERED: ONDANSETRON 4 MG/2 ML VIAL ONE (17:29)
[2019-09-25] MEDS ORDERED: NA CHLORIDE 0.9% 1,000 ML ONE (17:29)
[2019-09-25 17:58] LABS: Absolute Lymphocytes (CBC) 0.7 K/uL (0.7-4.9); Basophils % 0.2 % (0-1.3); Hematocrit 34.8 % (36.0-45.0); Lymphocytes % 3.8 % (15.3-44.8); MPV 10.6 fL (7.6-11.3); RBC Red Blood Cell Count 3.83 M/uL (3.86-4.86)
[2019-09-25 18:10] LABS: Albumin 3.6 g/dL (3.4-5.0); Bilirubin Direct 0.3 mg/dL (0-0.2); Bilirubin Total 0.9 mg/dL (0.2-1.0); Potassium 3.9 mmol/L (3.5-5.1); Protein, Total 7.6 g/dL (6.4-8.2)
--- NOTE | 2019-09-25 18:47 | RAD REPORT ---
EXAM DESCRIPTION: CTAbdomen Pelvis W Contrast - 09/25/2019 6:33 pm CLINICAL HISTORY: Abdominal pain. ABD PAIN COMPARISON: CT ABD PELVIS W CONTRAST dated 01/02/2015; CT ABD PELVIS W CONTRAST dated 03/22/2013 TECHNIQUE: Biphasic CT imaging of the abdomen and pelvis was performed with 100 ml non-ionic IV cont rast. All CT scans are performed using dose optimization technique as appropriate and may include automated exposure control or mA/KV adjustment according to patient size. FINDINGS: The lung bases are clear. The liver, spleen, pancreas, adrenal glands and left kidney are within normal limits. The right kidne y appears prominent in size with mild to moderate perinephric inflammatory changes. No bowel obstruction, free air, free fluid or abscess. Sigmoid diverticulosis. The appendix is normal . No evidence of significant lymphadenopathy. No suspicious bony findings. IMPRESSION: Right pyelonephritis is possible.
[2019-09-25] MEDS ORDERED: CEFTRIAXONE/SWI 1gm 0 GM/0 ML SYR ONE (18:56)
[2019-09-25 18:57] LABS: Urine Blood 3+ (NEG); Urine Glucose NEGATIVE (NEG); Urine Protein 3+ (NEG)
--- NOTE | 2019-09-25 18:57 | EDPHYS ---
Physician Documentation [facility] Name: Madison Thornton Age: 69 yrs Sex: Female : 1950 Arrival Date: 09/25/2019 Time: 16:47 Bed 4 Private MD: Kevin Reza V ED Physician Paco Rogers HPI: 09/25 19:04 This 69 yrs old Female presents to ER via Wheelchair with complaints of kb Nausea, Fever. 19:04 The patient presents to the emergency department with nausea, vomiting, abdominal pain. kb Onset: The symptoms/episode began/occurred 3 day(s) ago. Possible causes: unknown. The symptoms are aggravated by nothing. The symptoms are alleviated by nothing. Associated signs and symptoms: Pertinent positives: abdominal pain, dysuria, fever, nausea, vomiting. Severity of symptoms: At their worst the symptoms were moderate in the emergency department the symptoms are unchanged. The patient has not experienced similar symptoms in the past. The patient has not recently seen a physician. Pt reports n/v, abd pain, dysuria and fever that started on and symptoms are just getting worse. Historical: - Allergies: 17:05 No Known Allergies; aj1 - Home Meds: 17:05 levothyroxine 88 mcg oral tab 1 tab once daily [Active]; midodrine 5 mg Oral tab 1 tabs aj1 3 times per day [Active]; meclizine 12.5 mg Oral tab 1 tabs 3 times per day [Active]; - PMHx: 17:05 Hypothyroidism; Orthostatic hypotension; aj1 - Immunization history:: Flu vaccine is up to date. - Social history:: Smoking status: Patient/guardian denies using tobacco. - Ebola Screening: : Patient denies travel to an Ebola-affected area in the 21 days before illness onset. ROS: 19:03 ENT: Negative for injury, pain, and discharge, Neck: Negative for injury, pain, and kb swelling, Cardiovascular: Negative for chest pain, palpitations, and edema, Respiratory: Negative for shortness of breath, cough, wheezing, and pleuritic chest pain, Back: Negative for injury and pain, MS/Extremity: Negative for injury and deformity, Skin: Negative for injury, rash, and discoloration, Neuro: Negative for headache, weakness, numbness, tingling, and seizure. 19:03 Constitutional: Positive for fever, malaise. 19:03 Abdomen/GI: Positive for abdominal pain, nausea and vomiting. 19:03 : Positive for burning with urination. Exam: 19:03 Constitutional: This is a well developed, well nourished patient who is awake, alert, kb and in no acute distress. Head/Face: Normocephalic, atraumatic. ENT: Nares patent. No nasal discharge, no septal abnormalities noted. Tympanic membranes are normal and external auditory canals are clear. Oropharynx with no redness, swelling, or masses, exudates, or evidence of obstruction, uvula midline. Mucous membranes moist. Neck: Trachea midline, no thyromegaly or masses palpated, and no cervical lymphadenopathy. Supple, full range of motion without nuchal rigidity, or vertebral point tenderness. No Meningismus. Chest/axilla: Normal chest wall appearance and motion. Nontender with no deformity. No lesions are appreciated. Cardiovascular: Regular rate and rhythm with a normal S1 and S2. No gallops, murmurs, or rubs. Normal PMI, no JVD. No pulse deficits. Respiratory: Lungs have equal breath sounds bilaterally, clear to auscultation and percussion. No rales, rhonchi or wheezes noted. No increased work of breathing, no retractions or nasal flaring. Abdomen/GI: Soft, non-tender, with normal bowel sounds. No distension or tympany. No guarding or rebound. No evidence of tenderness throughout. Skin: Warm, dry with normal turgor. Normal color with no rashes, no lesions, and no evidence of cellulitis. MS/ Extremity: Pulses equal, no cyanosis. Neurovascular intact. Full, normal range of motion. Neuro: Awake and alert, GCS 15, oriented to person, place, time, and situation. Cranial nerves II-XII grossly intact. Motor strength 5/5 in all extremities. Sensory grossly intact. Cerebellar exam normal. Normal gait. Vital Signs: 17:05 BP 121 / 38; Pulse 86; Resp 18; Temp 100.9(O); Pulse Ox 98% on R/A; Weight 58.06 kg aj1 (R); Height 5 ft. 2 in. (157.48 cm) (R); Pain 0/10; 17:47 BP 172 / 67; Pulse 77; Resp 19; Pulse Ox 98% on R/A; ae4 19:07 BP 164 / 66; Pulse 76; Resp 17 S; Temp 99.1(O); Pulse Ox 99% on R/A; ae4 17:05 Body Mass Index 23.41 (58.06 kg, 157.48 cm) aj1 MDM: 17:08 Patient medically screened. kb 18:55 Data reviewed: vital signs, nurses notes. Data interpreted: Pulse oximetry: on room air kb is 98 %. Interpretation: normal. Counseling: I had a detailed discussion with the patient and/or guardian regarding: the historical points, exam findings, and any diagnostic results supporting the discharge/admit diagnosis, lab results, radiology results, the need for further work-up and treatment in the hospital. Physician consultation: Eliza Antunez MD was called at 18:55, voicemail left. 09/25 17:19 Order name: Basic Metabolic Panel; Complete Time: 18:13 kb 09/25 17:19 Order name: CBC with Diff; Complete Time: 18:13 kb 09/25 17:19 Order name: Hepatic Function; Complete Time: 18:13 kb 09/25 17:19 Order name: Lipase; Complete Time: 18:13 kb 09/25 17:19 Order name: Flu; Complete Time: 18:14 kb 09/25 18:30 Order name: Urine Dipstick--Ancillary (enter results); Complete Time: 19:03 em1 09/25 17:19 Order name: IV Saline Lock; Complete Time: 17:47 kb 09/25 17:19 Order name: Labs collected and sent; Complete Time: 17:47 kb 09/25 18:14 Order name: CT Abd/Pelvis - IV Contrast Only; Complete Time: 18:51 kb 09/25 18:48 Order name: Urine Microscopic Only; Complete Time: 19:32 kb 09/25 17:19 Order name: Urine Dipstick-Ancillary (obtain specimen); Complete Time: 18:28 kb Administered Medications: 17:36 Drug: Tylenol 650 mg Route: PO; ae4 19:02 Follow up: Response: Temperature is decreased; 99.1 ae4 17:46 Drug: NS 0.9% 1000 ml Route: IV; Rate: 1000 ml; Site: left antecubital; ae4 19:02 Follow up: IV Status: Completed infusion ae4 17:46 Drug: Zofran 4 mg Route: IVP; Site: left antecubital; ae4 19:02 Follow up: Response: Pain is decreased ae4 19:02 Drug: Rocephin 1 grams Route: IV; Rate: calculated rate; Site: left antecubital; ae4 19:03 Follow up: IV Status: Completed infusion ae4 Disposition: 09/25/19 18:56 Hospitalization ordered by Kevin Reza for Inpatient Admission. Preliminary diagnosis are Acute tubulo-interstitial nephritis, Urinary tract infection, site not specified, Elevated white blood cell count, Nausea with vomiting, unspecified. - Bed requested for Telemetry/MedSurg (Inpatient). - Status is Inpatient Admission. ak1 - Condition is Stable. - Problem is new. - Symptoms are unchanged. UTI on Admission? Yes Addendum: 09/28/2019 07:05 Co-signature as Attending Physician, Paco Rogers MD I agree with the assessment and c christian plan of care. Signatures: Dispatcher [employer] EDDebbie Shahid, JODI-C [employer] OPERATOR-Ckb Bernice Peguero, RN RN aj1 Paco Rogers MD MD cha Krenek, Amber RN RN ak1 Mahogany Jorgensen RN RN Arash Antonio RN RN ae4 Corrections: (The following items were deleted from the chart) 09/25 19:23 18:56 Hospitalization Ordered by Kevin Reza MD for Inpatient Admission. Preliminary cg diagnosis is Acute tubulo-interstitial nephritis; Urinary tract infection, site not specified; Elevated white blood cell count; Nausea with vomiting, unspecified. Bed requested for Telemetry/MedSurg (Inpatient). Status is Inpatient Admission. Condition is Stable. Problem is new. Symptoms are unchanged. UTI on Admission? Yes. kb 20:38 19:23 09/25/2019 18:56 Hospitalization Ordered by Kevin Reza MD for Inpatient ak1 Admission. Preliminary diagnosis is Acute tubulo-interstitial nephritis; Urinary tract infection, site not specified; Elevated white blood cell count; Nausea with vomiting, unspecified. Bed requested for Telemetry/MedSurg (Inpatient). Status is Inpatient Admission. Condition is Stable. Problem is new. Symptoms are unchanged. UTI on Admission? Yes. cg
--- NOTE | 2019-09-25 18:57 | ER ---
Nurse's Notes [facility] Name: Madison Thornton Age: 69 yrs Sex: Female : 1950 Arrival Date: 09/25/2019 Time: 16:47 Bed 4 Private MD: Kevin Reza V Diagnosis: Acute tubulo-interstitial nephritis;Urinary tract infection, site not specified;Elevated white blood cell count;Nausea with vomiting, unspecified Presentation: 09/25 17:02 Presenting complaint: Patient states: "Since last I've had a stomach ache and aj1 it hasn't gotten any better since ." Patient also reports vomiting and fever. Tmax 103.5 Denies diarrhea. Transition of care: patient was not received from another setting of care. Onset of symptoms was 2018. Risk Assessment: Do you want to hurt yourself or someone else? Patient reports no desire to harm self or others. Initial Sepsis Screen: Does the patient meet any 2 criteria? No. Patient's initial sepsis screen is negative. Does the patient have a suspected source of infection? Yes: Acute abdominal pain. Care prior to arrival: None. 17:02 Method Of Arrival: Wheelchair aj1 17:02 Acuity: SEBASTIEN 3 aj1 Triage Assessment: 17:05 General: Appears uncomfortable, ill, Behavior is calm, cooperative, appropriate for aj1 age. Pain: Denies pain. Neuro: Level of Consciousness is awake, alert, obeys commands. Cardiovascular: Patient's skin is warm and dry. Respiratory: Airway is patent Respiratory effort is even, unlabored, Respiratory pattern is regular, symmetrical. GI: Reports vomiting. Historical: - Allergies: 17:05 No Known Allergies; aj1 - Home Meds: 17:05 levothyroxine 88 mcg oral tab 1 tab once daily [Active]; midodrine 5 mg Oral tab 1 tabs aj1 3 times per day [Active]; meclizine 12.5 mg Oral tab 1 tabs 3 times per day [Active]; - PMHx: 17:05 Hypothyroidism; Orthostatic hypotension; aj1 - Immunization history:: Flu vaccine is up to date. - Social history:: Smoking status: Patient/guardian denies using tobacco. - Ebola Screening: : Patient denies travel to an Ebola-affected area in the 21 days before illness onset. Screenin:47 Abuse screen: Denies threats or abuse. Nutritional screening: No deficits noted. ae4 Tuberculosis screening: No symptoms or risk factors identified. Fall Risk Fall in past 12 months (25 points). Secondary diagnosis (15 points) Orthostatic hypotension. IV access (20 points). Ambulatory Aid- None/Bed Rest/Nurse Assist (0 pts). Gait- Normal/Bed Rest/Wheelchair (0 pts) Mental Status- Oriented to own ability (0 pts). Assessment: 17:47 General: Appears in no apparent distress. uncomfortable, slender, Behavior is calm, ae4 cooperative. Pain: Complains of pain in abdomen. Neuro: Level of Consciousness is awake, alert, obeys commands, Oriented to person, place, time, situation, Appropriate for age. Cardiovascular: Heart tones S1 S2 present Patient's skin is warm and dry. Respiratory: Airway is patent Respiratory effort is even, unlabored, Respiratory pattern is regular, symmetrical, Breath sounds are clear bilaterally. GI: Abdomen is round non-distended, Bowel sounds present X 4 quads. : No signs and/or symptoms were reported regarding the genitourinary system. EENT: No signs and/or symptoms were reported regarding the EENT system. Derm: Skin is pale. Musculoskeletal: Reports Generalized weakness. 19:41 General: Appears in no apparent distress. Behavior is calm, cooperative. Neuro: Level ak1 of Consciousness is awake, alert, obeys commands, Oriented to person, place, time, situation, Appropriate for age Moves all extremities. Full function. Respiratory: Airway is patent Respiratory effort is even, unlabored, Respiratory pattern is regular, symmetrical. GI: Abdomen is round non-distended, Bowel sounds present X 4 quads. : No signs and/or symptoms were reported regarding the genitourinary system. EENT: No signs and/or symptoms were reported regarding the EENT system. Derm: No signs and/or symptoms reported regarding the dermatologic system. Musculoskeletal: No signs and/or symptoms reported regarding the musculoskeletal system. Vital Signs: 17:05 BP 121 / 38; Pulse 86; Resp 18; Temp 100.9(O); Pulse Ox 98% on R/A; Weight 58.06 kg aj1 (R); Height 5 ft. 2 in. (157.48 cm) (R); Pain 0/10; 17:47 BP 172 / 67; Pulse 77; Resp 19; Pulse Ox 98% on R/A; ae4 19:07 BP 164 / 66; Pulse 76; Resp 17 S; Temp 99.1(O); Pulse Ox 99% on R/A; ae4 17:05 Body Mass Index 23.41 (58.06 kg, 157.48 cm) aj1 ED Course: 16:47 Patient arrived in ED. as 16:47 Mac Villasenor MD is Private Physician. as 16:47 Kevin Reza MD is Private Physician. as 17:04 Triage completed. aj1 17:05 Debbie Wu FNP-C is [facility]. kb 17:05 Paco Rogers MD is Attending Physician. kb 17:05 Arm band placed on Patient placed in an exam room. aj1 17:17 Arash Antonio RN is Primary Nurse. ae4 17:40 Inserted saline lock: 20 gauge in left antecubital area, using aseptic technique. Blood ae4 collected. 17:47 Placed in gown. Bed in low position. Call light in reach. Side rails up X 1. Adult w/ ae4 patient. Pulse ox on. NIBP on. light sheet provided.. 18:31 CT completed. Patient tolerated procedure well. Patient moved back from CT. bq 18:34 CT Abd/Pelvis - IV Contrast Only In Process Unspecified. EDMS 18:56 Kevin Reza MD is Hospitalizing Provider. kb 19:35 No provider procedures requiring assistance completed. Patient admitted, IV remains in ak1 place. 19:38 Primary Nurse role handed off by Arash Antonio, RN mb4 Administered Medications: 17:36 Drug: Tylenol 650 mg Route: PO; ae4 19:02 Follow up: Response: Temperature is decreased; 99.1 ae4 17:46 Drug: NS 0.9% 1000 ml Route: IV; Rate: 1000 ml; Site: left antecubital; ae4 19:02 Follow up: IV Status: Completed infusion ae4 17:46 Drug: Zofran 4 mg Route: IVP; Site: left antecubital; ae4 19:02 Follow up: Response: Pain is decreased ae4 19:02 Drug: Rocephin 1 grams Route: IV; Rate: calculated rate; Site: left antecubital; ae4 19:03 Follow up: IV Status: Completed infusion ae4 Intake: Outcome: 18:56 Decision to Hospitalize by Provider. kayla 19:41 Admitted to Med/surg accompanied by tech, family with patient, via stretcher, room 422, ak1 with chart, Report called to Wes STEINBERG 19:41 Condition: stable 19:41 Instructed on the need for admit. 20:38 Patient left the ED. ak1 Signatures: Dispatcher [employer] EDMS Debbie Wu, DRIP MOLDER-C DRIP MOLDER-CkBernice Dow, RN RN aj1 Sandee Booth Amelia as Krenek, Amber RN RN ak1 Amanda Chahal mb4 Arash Antonio RN RN ae4
[2019-09-25 19:31] LABS: Urine Bacteria >50 /HPF (<20); Urine Culture Reflex Order REFLEXED
[2019-09-25] MEDS: CEFTRIAXONE/SWI 1gm 1 GM/10 ML SYR ONE ×2 (21:00→22:36)
[2019-09-25] MEDS: NA CHLORIDE 0.9% 1,000 ML IV SCH (21:00)
[2019-09-25] MEDS: CEFTRIAXONE 1 GM/NS 50 ML 1 GM/50 ML BAG IV SCH (21:00)
[2019-09-25 21:01] VITALS: BMI 25.0
[2019-09-26] MEDS: ACETAMINOPHEN 500 MG TAB PO PRN ×3 (02:28→13:46)
[2019-09-26] MEDS: NA CHLORIDE 0.9% 1,000 ML IV SCH ×2 (06:12→16:20)
[2019-09-26 06:25] LABS: Absolute Lymphocytes (CBC) 0.7 K/uL (0.7-4.9); Basophils % 0.2 % (0-1.3); Hematocrit 32.1 % (36.0-45.0); Lymphocytes % 4.2 % (15.3-44.8); MPV 11.4 fL (7.6-11.3)
[2019-09-26 06:39] LABS: Potassium 4.4 mmol/L (3.5-5.1)
[2019-09-26] MEDS ORDERED: MIDODRINE HCL 5 MG TABLET PO PRN (07:43)
[2019-09-26 07:50] LABS: Blood Morphology Comment NOT SEEN (NOT SEEN); Platelet Estimate ADEQ; Urine White Blood Cell Casts OK
[2019-09-26] MEDS: CEFTRIAXONE 1 GM/NS 50 ML 1 GM/50 ML BAG IV SCH (08:47)
[2019-09-26] MEDS: CEFTRIAXONE/SWI 1gm 1 GM/10 ML SYR IVP SCH ×2 (08:48→20:24)
--- NOTE | 2019-09-26 12:21 | P.HP ---
Certification for Inpatient Patient admitted to: Inpatient With expected LOS: >2 Midnights Practitioner: I am a practitioner with admitting privileges, knowledge of patient current condition, hospital course, and medical plan of care. Services: Services provided to patient in accordance with Admission requirements found in Title 42 Section 412.3 of the Code of Federal Regulations Patient History Date of Service: 09/26/19 Reason for admission: UTI, FLANK PAIN. History of Present Illness: MS. LEWIS IS 69 YEARS OLD LADY WITH POTS AND RECURRENT UTI BY HISTORY. SHE WAS GIVEN LIFETIME ANTIBIOTIC BY A UROLOGIST. THESE ANTIBIOTICS SOME TIMES GIVE RISE TO CHRONIC COMPLICATION LIKE PULMONARY FIBROSIS, RESISTANCE TO ANTIBIOTICS OR RENAL FAILURE. SHE KNOWING THIS QUIT THE MEDICINE THAT WAS TRIMETHOPRIM BUT STARTED TO HAVE UTI SS AND FLANK PAIN. Allergies No Known Allergies Allergy (Verified 04/08/17 09:57) Home Medications: Levothyroxine [Synthroid] 88 mcg PO [id number] 09/25/19 Midodrine HCl 5 mg PO TIDP PRN 09/25/19 - Past Medical/Surgical History Has patient received pneumonia vaccine in the past: Yes Diabetic: No -: ORTHOSTATIC HYPOTENSION -: HYPOTHHYROIDISM -: -: LUMPECTOMY -: HELLER MYOTOMY WITH FUNDUCPLICATION -: HYSTERECTOMY - Family History Father -: Cancer Mother -: Lung disease, Cancer Sister -: Cancer - Social History Smoking Status: Never smoker Alcohol use: No CD- Drugs: No Caffeine use: No Place of Residence: Home Review of Systems 10-point ROS is otherwise unremarkable General: Weakness Physical Examination - Vital Signs Temperature: 99.5 F Blood Pressure: 159/55 Pulse: 78 Respirations: 16 Pulse Ox (%): 98 - Physical Exam General: Mild distress HEENT: Atraumatic, PERRLA, Mucous membr. moist/pink, EOMI, Sclerae nonicteric Neck: Supple, 2+ carotid pulse no bruit, No LAD, Without JVD or thyroid abnormality Respiratory: Clear to auscultation bilaterally, Normal air movement Cardiovascular: Regular rate/rhythm, Normal S1 S2 Gastrointestinal: Tenderness (FLANK.) Musculoskeletal: No tenderness Integumentary: No rashes Neurological: Normal gait, Normal speech, Normal strength at 5/5 x4 extr, Normal tone, Normal affect Lymphatics: No axilla or inguinal lymphadenopathy - Studies Laboratory Data (last 24 hrs) 09/25/19 17:43: WBC 19.3 H, Hgb 11.7 L, Hct 34.8 L, Plt Count 146 L 09/25/19 17:43: Sodium 132 L, Potassium 3.9, BUN 19 H, Creatinine 1.44 H, Glucose 156 H, Total Bilirubin 0.9, AST 30, ALT 41, Alkaline Phosphatase 81, Lipase 30 L Microbiology Data (last 24 hrs): 09/25/19 17:39 Nasopharnyx Influenza Type A Antigen Screen - Final 09/25/19 17:39 Nasopharnyx Influenza Type B Antigen Screen - Final Assessment and Plan - Problems (Diagnosis) (1) Acute pyelonephritis Current Visit: Yes Status: Acute Plan: SHE HAS PYELONEPHRITIS ON CLINICAL EXAM AND CT SCAN ALSO. I AGREE WITH IV ROCEPHIN. WBC IS REDUCING AND DEHYDRATION IS ALSO IMPROVING. WILL KEEP HER UNTIL WBC IS NORMAL OR CLOSE TO AND SHE IS FEELING GOOD GO HOME. IT MAY TAKE TWO DAYS HERE. - Advance Directives Does patient have a Living Will: No Does patient have a Durable POA for Healthcare: No
[2019-09-26] MEDS: ENOXAPARIN 30 MG/0.3 ML SQ SCH (16:20)
[2019-09-26] MEDS: ONDANSETRON 4 MG/2 ML VIAL IV PRN ×2 (16:20→23:59)
[2019-09-26] MEDS: TRAMADOL HCL 50 MG TAB PO PRN ×2 (18:01→22:44)
[2019-09-27] MEDS: NA CHLORIDE 0.9% 1,000 ML IV SCH ×3 (01:33→20:39)
[2019-09-27 05:03] LABS: Absolute Lymphocytes (CBC) 0.7 K/uL (0.7-4.9); Basophils % 0.2 % (0-1.3); Lymphocytes % 5.5 % (15.3-44.8); MPV 10.1 fL (7.6-11.3); RBC Red Blood Cell Count 3.26 M/uL (3.86-4.86)
[2019-09-27 05:36] LABS: Magnesium 2.1 mg/dL (1.8-2.4); Potassium 3.8 mmol/L (3.5-5.1)
[2019-09-27] MEDS ORDERED: POTASSIUM CL SA 10 MEQ TAB PO ONE (05:43)
[2019-09-27] MEDS: LEVOTHYROXINE SOD 0.088 MG TAB PO SCH (06:01)
[2019-09-27 07:38] LABS: Albumin 2.5 g/dL (3.4-5.0); Bilirubin Direct 0.1 mg/dL (0-0.2); Bilirubin Total 0.3 mg/dL (0.2-1.0)
[2019-09-27] MEDS: CEFTRIAXONE/SWI 1gm 1 GM/10 ML SYR IVP SCH ×2 (08:02→20:39)
[2019-09-27] MEDS: ONDANSETRON 4 MG/2 ML VIAL IV PRN ×2 (09:09→19:35)
[2019-09-27] MEDS: ENOXAPARIN 30 MG/0.3 ML SQ SCH (16:11)
[2019-09-27] MEDS: TRAMADOL HCL 50 MG TAB PO PRN (19:35)
[2019-09-27] MEDS: PROMETHAZINE 25 MG TABLET PO PRN (20:39)
--- NOTE | 2019-09-27 23:32 | PN ---
Subjective: Patient is feeling a lot better. Denies chest pain, nausea, vomiting, diarrhea, or coughing. Physical Examination: Vital Signs: Blood pressure 170/71. Chest: Clear. Heart: Regular. Abdomen: No guarding, no rebound. No rigidity. Laboratory Data: White count is down to 13,000, hemoglobin 10, hematocrit 30, platelets are 132,000. Her albumin is low at 2.4, which is reducing her total calcium count. Ionized calcium should be normal at this point and corrected calcium level is more than 7.5. Assessment And Plan: 1. Pyelonephritis. Continue IV antibiotics. Possible discharge tomorrow. 2. Orthostatic hypertension or POTS syndrome. She is well familiar with this problem she has for a long duration. 3. Hypocalcemia: Corrected Calcium is close to normal range, so I am not worried about correcting this calcium at this point. I will fu. 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 BKD/MODL Voice ID: [id number] Report ID: [id number] REJI
[2019-09-28 05:12] LABS: Absolute Lymphocytes (CBC) 1.3 K/uL (0.7-4.9); Basophils % 0.3 % (0-1.3); Hematocrit 30.7 % (36.0-45.0); Lymphocytes % 11.5 % (15.3-44.8); MPV 10.3 fL (7.6-11.3); RBC Red Blood Cell Count 3.37 M/uL (3.86-4.86)
[2019-09-28 05:22] LABS: Potassium 4.4 mmol/L (3.5-5.1)
[2019-09-28] MEDS: LEVOTHYROXINE SOD 0.088 MG TAB PO SCH (05:35)
[2019-09-28] MEDS: CEFTRIAXONE/SWI 1gm 1 GM/10 ML SYR IVP SCH (09:02)
[2019-09-28] MEDS: NA CHLORIDE 0.9% 1,000 ML IV SCH (09:03)
[2019-09-28 09:38] VITALS: O2SAT 95
[2019-09-28] MEDS: PROMETHAZINE 25 MG TABLET PO PRN (10:27)
[2019-09-28 12:25] VITALS: BP 160/75
[2019-09-28 12:51] VITALS: TEMP 97.3
--- NOTE | 2019-09-29 04:27 | DS ---
Date of Discharge: 09/28/2019 Final Diagnosis: Acute pyelonephritis. Secondary Diagnoses: Orthostatic hypotension by POTS syndrome. Hospital Course: Patient is a 69-year-old lady who has a POTS syndrome for long duration, also has r ecurrent UTI in the past, has been given oral antibiotics by urologist on lifetime basis, which is wh at I recommended not to do much because she will be developing resistance and complications of the an tibiotic itself. Unfortunately, she developed pyelonephritis, improved on IV Rocephin. She is disch arged in stable condition with Cipro p.o., which is sensitive to E coli she is growing in the urine. She will be referred to a different urologist locally for further followup. Her prognosis remains fa ir. ELSA/KRISTOPHER Voice ID: [id number] Report ID: [id number]
== END 2019-09-28 12:15 | disposition home or self-care (01) | DRG 690 ==
LOC: ER 16:45 → ERHOLD 19:21 → 4TH 19:43
PROVIDERS: ADMIT Internal Medicine; ATTEND Internal Medicine
DX: N10 Acute pyelonephritis (principal); B96.20 Unspecified Escherichia coli [E. coli] as the cause of diseases classified elsewhere; I95.1 Orthostatic hypotension; I49.8 Other specified cardiac arrhythmias; E83.51 Hypocalcemia; E03.9 Hypothyroidism, unspecified
CPT/HCPCS: 36415; 74177; 80048; 80076; 81003; 81015; 82306; 83690; 83735; 83970; 84145; 85025; 87077; 87086; 87088; 87186; 87804; 96361; 96374; 96375; 99285; J0696; J1650; J2405; J7030; Q0169; Q9967

== ENCOUNTER 2021-10-13 23:27 | Emergency (ER) | payer OTHER ==
--- OUTSIDE RECORDS SUMMARY | 2021-10-13 23:33 | XMS REPORT | Continuity of Care Document ---
:1950 Author Organization [facility] t Address [address] [place] [address] Care Team Providers Name Role Phone Libia V Primary Care Physician Ariana Gil Attending Clinician Unavailable Vaccine, Db Cbc Fam Attending Clinician Unavailable Jared SCHULER Attending Clinician JARED Attending Clinician Unavailable Marcia STEINBERG T Attending Clinician Unavailable Doctor Unassigned, Name Attending Clinician Unavailable CHANTEL Attending Clinician Unavailable TRE Attending Clinician Unavailable Dalia Smith Attending Clinician Unavailable CAMERON REYES Attending Clinician Unavailable CRISTINA Attending Clinician Unavailable Ariana Gil Admitting Clinician Unavailable Physician, Primary or Family Admitting Clinician UnavailCAEMRON Solorio Admitting Clinician Unavailable ALAJuan Admitting Clinician Unavailable Payers Payer Name Policy Type Policy Number Effective Date Expiration Date S ource Problems Condition Condition Condition Status Onset Resolution Last Treating Co mments Source Name Details Category Date Date Treatment Clinician Date Osteoporos Problem Resolve 2021-05-02 Memoria is d 21:30:55 l (disorder) Ron jama Osteoporos is (disorder) Resolved Problem 05/02/2021 [facility] Urinary Problem Resolve 2021-05-02 Mem oria tract d 21:30:55 l infectious Urinary Her ramos disease tract (disorder) infectious disease (disorder) Resolved Problem 05/02/2021 [facility] 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:30:55 l (disorder) 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 Problem 05/02/2021 [facility] Female Problem Active 2021-05-02 Memor ia urinary 21:30:55 l stress Female [place] incontinen urinary ce stress (finding) incontinen ce (finding) Active Problem 05/02/2021 [facility] Recurrent Problem Active 2021-05-02 Me moria urinary 21:30:55 l tract [place] infection Recurrent (disorder) urinary tract infection (disorder) Active Problem 05/02/2021 [facility] Hypothyroi Problem Resolve 2021-05-02 Memoria dism d 21:30:55 l (disorder) Ron n Hypothyroi dism (disorder) Resolved Problem 05/02/2021 [facility] Low blood Problem Resolve 2021-05-02 M emoria pressure d 21:30:55 l (disorder) Low Ron n blood pressure (disorder) Resolved Problem 05/02/2021 [facility] Allergies, Adverse Reactions, Alerts Allergy Allergy Status Severity Reaction(s) Onset Inactive Treating Comm ents Source Name Type Date Date Clinician No Known DA Active U 0 [facility] 00 [facility] No Known DA Active U 2020-0 [facility] Allergie 11-16 [facility] 00 [facility] NO KNOWN Drug Active Univers ALLERGIE Class ity of [facility] Social History Social Habit Start Date Stop Date Quantity Comments Source Exposure to Not sure [facility] SARS-CoV-2 (event) [facility] Sex Assigned At [birth year] [facility] 00:00:00 00:00:00 [facility] Smoking Status Start Date Stop Date Source Unknown if ever smoked [facility] Social History [facility] Medications Ordered Filled Start Stop Current Ordering Indication Dosage Frequency Signature Comments Components Source Medication Medication Date Date Medication? Clinician (SIG) Name Name Estradiol 2019-11 Yes See Memoria 0.1 MG/ML 12-19 Instructio l Vaginal 15:39: ns, apply [place] nn Cream 00 pea size [Estrace] amount to urethra and vagina 3xweek. 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 May dispose of applicator ., # 43 gm, 3 Refill(s), Pharmacy: [facility] #[id number], 157.48, cm, 07/19/20 10:58:00 CDT, Height, 65.909, kg, 07/19/20 10:58:00 CDT, Weight Vitamin D3 2020-0 Yes 0 Memoria 50,000 intl 9- Refill(s) l units oral 16:08: Arturo capsule 00 levothyroxi 2020-0 Yes 0 Memori a ne 88 mcg 9 Refill(s) l (0.088 mg) 16:08: [place] oral tablet 00 midodrine 5 2020-0 Yes 0 Memori a mg oral 9 Refill(s) l tablet 16:08: [place] 00 fludrocorti 2020-0 Yes 0 Memori a sone 0.1 mg 9-09 Refill(s) l oral tablet 16:08: Ron n 00 multivitami 2020-0 Yes Daily, 0 Me moria n 9-09 Refill(s) l 16:08: Art[place] 00 Vitamin C 2020-0 Yes Daily, 0 Sancho coty 9-09 Refill(s) l 16:08: Arturo 00 Immunizations Ordered Filled Immunization Date Status Comments [facility] e Immunization Name Name SARS-COV-2 COVID-19 2021-10-08 Completed Unive rsity of MODERNA BOOSTER 00:00:00 [facility] ical VACCINE Branch Vital Signs Vital Name Observation Time Observation Value Comments Source Height 2020-11-20 15:59:00 157.48 cm [facility] Weight 2020-11-20 15:59:00 [facility] BMI Calculated 2020-11-20 15:59:00 Memori al [place] Height 2020-10-18 15:10:00 157.48 cm [facility] Weight 2020-10-18 15:10:00 [facility] BMI Calculated 2020-10-18 15:10:00 Memori al Arturo Systolic (mm Hg) 2020-10-18 15:10:00 Sancho rial [place] Diastolic (mm Hg) 2020-10-18 15:10:00 [facility] orial Art[place] Heart Rate 2020-10-18 15:10:00 [facility] [place] Systolic (mm Hg) 2020-07-19 15:58:00 Sancho rial [place] Diastolic (mm Hg) 2020-07-19 15:58:00 [facility] orial [place] Heart Rate 2020-07-19 15:58:00 [facility] Arturo Height 2020-07-19 15:58:[address] [facility] 2020-07-19 15:58:00 [facility] BMI Calculated 2020-07-19 15:58:00 Mark Anthony hargrove [place] Procedures Procedure Date / Time Performing Clinician Source Performed SARS-COV-2 COVID-19 2021-10-08 19:20:48 Doctor Unassigned, No [facility] [place] VACCINE Name Medical Branch BOOSTER,0.25ML,IM (MODERNA) Measurement of 2020-07-19 15:57:00 [facility] ramos post-voiding residual urine and/or bladder capacity by ultrasound, non-imaging Caesarean section [facility] nn Hysterectomy [facility] Lumpectomy [facility] Encounters Start End Encounter Admission Attending Care Care Encounter Source Date/Time Date/Time Type Type Clinicians Facility Department ID 2020-11-08 Inpatient EL Bonefas, [facility] 13:28:00 Desi 1230 [facility] 2019-11-19 Inpatient EL Bonefas, [facility] DAYS [facility] 11:00:00 Desi 0110 [facility] 2019-11-16 Inpatient EL Bonefas, [facility] OUTD [facility] 11:00:00 Desi 0107 [facility] 2021-10-08 2021-10-08 Imm/Inj Vaccine, Ang Db Cbc Fam [facility] 1. [id number] Univers 13:12:27 13:22:27 Visit [facility] [id number] ity of [place] [id number] Bertrand as HAIM?BLEA [phone] Or dical KNEY [address] [place] [address] MEDICAL OFFICE BUILDING 2021-10-08 2021-10-08 Outpatient R [facility] [id number] Univers 13:20:00 13:20:00 [id number] ity [facility] 2021-10-08 2021-10-08 Outpatient R JARED, [facility] [id number] Univers 13:20:00 13:20:00 ASIA ity [facility] 2021-06-26 2021-06-26 Letter KENA Kennedy [id number] Univers 00:00:00 00:00:00 (Out) Jessenia REDD [id number] it y of HOSPITAL [id number] [place] as [phone] [address] 2021-06-26 2021-06-26 Patient Doctor KENA [id number] Univers 00:00:00 00:00:00 Secure Msg Unassigned, TRAMAINE [id number] ity of [place] [facility] [id number] Bert[place] as [phone] [address] 2021-06-25 2021-06-25 Outpatient R [facility] [id number] Univers 10:40:00 10:40:00 [id number] ity [facility] 2021-06-25 2021-06-25 [facility] [id number] Univers 10:40:00 10:40:00 [facility] 2021-06-25 2021-06-25 Letter Doctor KENA [id number] Univers 00:00:00 00:00:00 (Out) Unassigned, TRAMAINE [id number] ity of [place] [facility] [id number] Bertrand as [phone] [address] 2021-04-30 2021-04-30 Ambulatory nullFlavo [facility] Multi 39 [id number] Memoria 15:20:00 15:20:00 Pre-Reg r Specialty 02 l [facility] 2020-12-19 2020-12-19 [facility] [id number] Univers 10:45:00 10:45:00 CAMERON kenjimargot of [facility] 2020-11-20 2020-11-21 Outpatient nullFlavo MG Multi 39 [id number] Memoria 15:40:00 05:59:59 r Specialty 05 l Clinic [facility] 2020-11-15 2020-11-15 [place] [id number] Memoria 16:00:00 16:00:00 Pre-Reg r Urology 04 l [facility] 2020-10-27 2020-10-27 Ambulatory nullFlavo [facility] [id number] Memoria 20:00:00 20:00:00 Pre-Reg r Urology 03 l [facility] 2020-10-18 2020-10-19 Outpatient nullFlavo MG Multi 39 [id number] Memoria 15:00:00 05:59:59 r Specialty 01 l [facility] 2020-07-19 2020-07-20 Outpatient nullFlavo [facility] Multi 39 [id number] Memoria 14:00:00 04:59:59 r Specialty 00 l [facility] 2019-10-12 2019-10-12 Outpatient GERMÁN Smith, [facility] [id number] [facility] 12:00:00 12:00:[address] [place] [address] Results Test Description Test Time Test Comments Results Result [facility] e Comments BREAST,EXCISION 2019-11-24 OF LESION/MASS 17:50:00 RUN DATE: 11/24/19 [facility] PAGE 1 RUN TIME: 1903 Specimen Inquiry RUN USER: INTERFACE ESPERANZA ENT: FRANCO LEWIS LOC: ASHWIN U #: [id number] AGE/SX: 69/F ROOM: RE11/19/19REG DR: Desi Gil MD : 50 BED: DIS: STATUS: [facility] TLOC: SPEC #: [id number] RECD: 11/19/19-1439 STATUS: KERMIT CUMMINGS #: [id number] ASHLEY: 11/19/19- SUBM DR: Desi Gil MD ENTERED: 11/19/19 SP TYPE: BREAST,EXC OTHR DR: ORDERED: LEVEL SURGIC CODES: [id number] - BREAST, NOS PROCEDURES: LEVEL SURGIC (Incomplete) TISSUES: BREAST, NOS - RIGHT BREAST TISSUE CLINICAL HISTORY 69 year old, RIGHT breast abnormal mammogram (wpd) FINAL DIAGNOSIS RIGHT breast, excision: - complex sclerosing lesion - multiple foci of adenosis with microcalcifications - focus of atypical ductal hyperplasia (ADH) COMMENT: The technical components were performed at [facility], [address] [place] [address], [address], [place] [address]. The interpretation is provided by [facility], [address] [place] [address]. Controls received from [employer] stained appropriately. CPT code(s): 26993, 68729-61, 74176-90 cds/wpd 11/22/19 cds/kr dt: 11/24/19 GROSS DESCRIPTION ANATOMIC SOURCE OF TISSUE (per Requisition): RIGHT breast tissue, long lateral, short superior The specimen is received in a formalin-filled container, labeled with the patient's name and designated "RIGHT breast tissue". The specimen consists of a 15 gm, 5.0 x 4.0 x 2.0 cm portion of breast tissue. Orientation sutures are placed as follows: short - superior, long - lateral. A 1.0 x 0.8 x 0.7 cm spiculated mass is present in slices 6 and 7. The mass is 0.8 cm from the medial margin, 0.5 cm of the anterior margin, 0.6 cm of the posterior margin, 1.0 cm from the lateral margin. The cut surfaces are valdovinos and indurated. A clip and JASS Traffic Sign Supervisor wire are identified in slice 6. CONTINUED ON NEXT PAGE RUN DATE: 11/24/19 [facility] PAGE 2 RUN TIME: 1903 Specimen Inquiry RUN USER: INTERFACE SPEC #: [id number] PATIENT: FRANCO LEWIS #[id number] (Continued) ------- GROSS DESCRIPTION (Continued) The outer surface of the specimen is valdovinos-yellow, cauterized and slightly fragmented. The remainder of the breast parenchyma is predominantly pink-white, firm, consolidated fibrous tissue admixed with a moderate amount of bright yellow, homogenous, soft adipose tissue (60% fibrous tissue and 40% adipose tissue). No other lesions are identified. The specimen is serially sectioned into eight slices and submitted in its entirety in sequential order from superior to inferior. Ink code: Blue - superior Red - inferior Black - posterior Green - anterior [place] - medial Purple - lateral Section code: Slice 1 - A1 Slice 2 - A2 Slice 3 - A3 and A4 Slice 4 - A5 and A6 Slice 5 - A7 and A8 Slice 6 - A9 and A10 Slice 7 - A11 and A12 Slice 8 - A13 /wpd 11/19/19 MICROSCOPIC DESCRIPTION A fibrotic area with an elastotic core. Small foci of glandular epithelium are present in the periphery of the lesion. Myoepithelial markers (p63 and SMM-HC) on block A11 indicate myoepithelial cells around the glandular profiles consistent with a benign process. A small focus of atypical ductal hyperplasia is present in block A9. [facility]/wpd 11/22/19 / [facility]/wpd 11/24/19 ---- Signed Viral Benítez 11/24/19 1750 END OF REPORT CHEMISTRY 7 PROFILE 2019-11-16 14:48:00 Test Item Value Reference Range Interpretation Comme nts SODIUM (test code = NA) 138 mEq/L 135-145 N POTASSIUM (test code = K) 5.2 mEq/L 3.5-5.0 H CHLORIDE (test code = CL) 104 mEq/L 100-115 N CARBON DIOXIDE (test code = CO2) 28 mEq/L 22-31 N ANION GAP (test code = GAP) 10.80 10-20 N GLUCOSE (test code = GLU) 87 mg/dL 65-110 N BLOOD UREA NITROGEN (test code = BUN) 17 mg/dL 7-18 N GLOMERULAR FILTRATION RATE (test code = GFR) 55 ml/min >60 L CREATININE (test code = CREAT) 1.0 mg/dL 0.5-1.0 N CALCIUM (test code = CA) 9.1 mg/dL 8.4-10.2 N CBC W/AUTO [id number] 14:24:00 Test Item Value Reference Range Interpretation Comments WHITE BLOOD CELL (test code = WBC) 6.9 K/mm3 6.6-12.1 N RED BLOOD CELL (test code = RBC) 3.56 M/mm3 3.45-5.01 N HEMOGLOBIN (test code = HGB) 10.5 g/dL 10.7-13.9 L HEMATOCRIT (test code = HCT) 33.4 % 32.1-42.1 N MEAN CELL VOLUME (test code = MCV) 94 fL 84.1-94.8 N MEAN CELL HGB (test code = MCH) 29.5 pg 27-35 N MEAN CELL HGB CONCETRATION (test 31.4 gm/dL 32.2-34.1 L code = MCHC) RED CELL DISTRIBUTION WIDTH (test 15.1 % 12.4-16.5 N code = RDW) PLATELET COUNT (test code = PLT) 201 K/mm3 133-385 N IMMATURE PLATELET FRACTION (test 0.0 % 0.0-10.8 N code = IPF) MEAN PLATELET VOLUME (test code = 12.6 fl 9.1-12.7 N MPV) NEUTROPHIL % (test code = NT%) 58.0 % 56.5-79.4 N LYMPHOCYTE % (test code = LY%) 29.5 % 14.3-34.3 N MONOCYTE % (test code = MO%) 10.2 % 5.1-10.4 N EOSINOPHIL % (test code = EO%) 1.5 % 0.1-3.0 N BASOPHIL % (test code = BA%) 0.7 % 0.1-1.0 N NEUTROPHIL # (test code = NT#) 4.0 K/mm3 LYMPHOCYTE # (test code = LY#) 2.0 K/mm3 MONOCYTE # (test code = MO#) 0.7 K/mm3 EOSINOPHIL # (test code = EO#) 0.10 K/mm3 BASOPHIL # (test code = BA#) 0.1 K/mm3 RBC MORPHOLOGY REQUIRED (test code NORMAL NORMAL = RBCM) PLATELET MORPHOLOGY REQUIRED (test NORMAL NORMAL code = PLTMR) BREAST,[id number] 17:07:00 RUN DATE: 10/15/19 [facility] PAGE 1 RUN TIME: 2050 Specimen Inquiry RUN USER: INTERFACE PATIENT: FRANCO LEWIS LOC: LUIS EDUARDO U #: [id number] AGE/SX: 69/F ROOM: RE10/14/19REG DR: Ngozi Smith MD : 50 BED: DIS: STATUS: PRE REF TLOC: SPEC #: [id number] RECD: 10/12/19 STATUS: KERMIT CUMMINGS #: [id number] ASHLEY: 10/12/19- SUBM DR: Ngozi Smith MD ENTERED: 10/12/19 SP TYPE: BREABX OTHR DR: Ammy Hunt MD ORDERED: LEVEL IV CODES: [id number] - BREAST, NOS COPIES TO: Ammy Hunt MD [address] [place] [address] [email or web address] Ngozi Smith MD [address] [facility] [address] [place] [address] PROCEDURES: LEVEL IV (Incomplete) TISSUES: BREAST, NOS - RIGHT BREAST BIOPSY CLINICAL HISTORY 69 year old, ultrasound-guided core biopsy,3 cores in formalin at 0840 hours (wpd) NOTE: RIGHT breast 8:00 (0.8 cm): Biopsy: 10/12/19 - not provided In formalin: 10/12/19 @ 0840 Out of formalin: 10/12/19 @ 1825 FINAL DIAGNOSIS RIGHT breast at 8:00, core biopsy: - hyalinized fibroadenoma with foci of adenosisin adjacent breast parenchyma - microcalcifications present associated with the hyalinized fibroadenoma and areas of adenosis COMMENT: The following technical components were performed at [facility], [address] [place] [address], [address], [place] [address]. The interpretation is provided by [facility], [address] [place] [address]. CONTINUED ON NEXT PAGE RUN DATE: 10/15/19 [facility] PAGE 2 RUN TIME: 2050 Specimen Inquiry RUN USER: INTERFACE SPEC #:[id number] PATIENT: FRANCO LEWIS #[id number] (Continued) FINAL DIAGNOSIS (Continued) Positive and/or negative controls received from [employer] stained appropriately. RESULTS: P63 (block A1) - positive, highlighting myoepithelial cells SMM-HC (block A1) - positive, highlighting myoepithelial cells. CPT code(s): 12985, 32561-23, 90077-19 pkg/wpd 10/13/19 pkg/wpd 10/14/19 GROSS DESCRIPTION ANATOMIC SOURCE OF TISSUE (per Requisition): RIGHT breast 8:00 (0.8 cm) The specimen is received in a formalin-filled container, labeled with the patient's name and designated "RIGHT breast 8:00". The specimen consists of three off-white and yellow, soft tissue cores ranging from 0.6 - 1.2 cm in length and is submitted in toto in A1. hz/wpd 10/12/19 @ 1907 MICROSCOPIC DESCRIPTION The specimen consists of several cores of breast parenchyma, all of which contain a vaguely nodular lesion composed of myxoid to hyalinized hypocellular stroma. Several widely spaced tubular to compressed glandular structuresare present. Adjacent to the mass in the surrounding breast parenchyma, foci of adenomyosis arepresent. Both the hyalinized fibroadenoma and the foci of adenosis are associated with coarse microcalcifications. No atypia or malignancy is identified. No leaflike architectural structures, stromal overgrowth or cytologic atypia is present. pkg/wpd 10/13/19 Signed AlekVeena 10/14/19 1707 END OF REPORT CBC W/PLT COUNT & AUTO [id number] 06:22:00 Test Item Value Reference Range Interpretation Comments WHITE BLOOD CELL COUNT (BEAKER) 13.4 K/ L 3.5-10.5 H (test code = 775) RED BLOOD CELL COUNT (BEAKER) 3.50 M/ L 3.93-5.22 L (test code = 761) HEMOGLOBIN (BEAKER) (test code = 10.1 GM/DL 11.2-15.7 L 410) HEMATOCRIT (BEAKER) (test code = 31.3 % 34.1-44.9 L 411) MEAN CORPUSCULAR VOLUME (BEAKER) 89.4 fL 79.4-94.8 (test code = 753) MEAN CORPUSCULAR HEMOGLOBIN 28.9 pg 25.6-32.2 (BEAKER) (test code = 751) MEAN CORPUSCULAR HEMOGLOBIN CONC 32.3 GM/DL 32.2-35.5 (BEAKER) (test code = 752) RED CELL DISTRIBUTION WIDTH 15.1 % 11.7-14.4 H (BEAKER) (test code = 412) PLATELET COUNT (BEAKER) (test 179 K/CU MM 150-450 code = 756) MEAN PLATELET VOLUME (BEAKER) 11.9 fL 9.4-12.3 (test code = 754) NUCLEATED RED BLOOD CELLS 0 /100 WBC 0-0 (BEAKER) (test code = 413) NEUTROPHILS RELATIVE PERCENT 68 % (BEAKER) (test code = 429) LYMPHOCYTES RELATIVE PERCENT 22 % (BEAKER) (test code = 430) MONOCYTES RELATIVE PERCENT 7 % (BEAKER) (test code = 431) EOSINOPHILS RELATIVE PERCENT 2 % (BEAKER) (test code = 432) BASOPHILS RELATIVE PERCENT 0 % (BEAKER) (test code = 437) NEUTROPHILS ABSOLUTE COUNT 9.12 K/ L 1.56-6.13 H (BEAKER) (test code = 670) LYMPHOCYTES ABSOLUTE COUNT 2.99 K/ L 1.18-3.74 (BEAKER) (test code = 414) MONOCYTES ABSOLUTE COUNT (BEAKER) 0.89 K/ L 0.24-0.36 H (test code = 415) EOSINOPHILS ABSOLUTE COUNT 0.31 K/ L 0.04-0.36 (BEAKER) (test code = 416) BASOPHILS ABSOLUTE COUNT (BEAKER) 0.03 K/ L 0.01-0.08 (test code = 417) IMMATURE GRANULOCYTES-RELATIVE 0 % 0-1 PERCENT (BEAKER) (test code = 280) [id number] 06:11:00 Test Item Value Reference Range Interpretation Comments MAGNESIUM (BEAKER) (test code = 1.9 mg/dL 1.6-2.6 627) BASIC METABOLIC [id number] 06:11:00 Test Item Value Reference Range Interpretation Comments SODIUM (BEAKER) 139 meq/L 136-145 (test code = 381) POTASSIUM (BEAKER) 3.4 meq/L 3.5-5.1 L (test code = 379) CHLORIDE (BEAKER) 108 meq/L 98-107 H (test code = 382) CO2 (BEAKER) (test 24 meq/L 22-29 code = 355) BLOOD UREA NITROGEN 8 mg/dL 7-21 (BEAKER) (test code = 354) CREATININE (BEAKER) 0.84 mg/dL 0.57-1.25 (test code = 358) GLUCOSE RANDOM 91 mg/dL 70-105 (BEAKER) (test code = 652) CALCIUM (BEAKER) 8.9 mg/dL 8.4-10.2 (test code = 697) EGFR (BEAKER) (test 68 mL/min/1.73 ESTIMA KAITLYN GFR IS code = 1092) sq m NOT ACCURATE CREATININE CLEARANCE IN PREDICTING GLOMERULAR FILTRATION RATE . ESTIMATED GFR I S NOT APPLICABLE FOR DIALYSIS PATIEN TS. [id number] 05:42:00 Test Item Value Reference Range Interpretation Comments PARTIAL THROMBOPLASTIN TIME 57.1 seconds 22.5-36.0 H (BEAKER) (test code = 760) PROTHROMBIN [id number] 05:41:00 Test Item Value Reference Range Interpretation Comments PROTIME (BEAKER) (test code = 15.0 seconds 11.7-14.7 H 759) INR (BEAKER) (test code = 370) 1.2 <=5.9 RECOMMENDED COUMADIN/WARFARIN INR THERAPY RANGESSTANDARD DOSE: 2.0 - 3.0 Includes: PROPHYLAXIS forvenous thrombosis, systemic embolization; TREATMENT for venous thrombosis and/or pulmonary embolus.HIGH RISK: Target INR is 2.5-3.5 for patients with mechanical heart valves.RAD, CHEST, 1 VIEW, NON [id number] 05:05:00Reason for exam:->ptxShould this be performed at the bedside?->Yes FINAL REPORT Chest one view. Clinical history: Pneumothorax Comparison: Chest radiograph 03/21/2018 Technique: A single frontal view of the chest was obtained. Findings: Again seen is subcutaneous emphysema in the bilateral lower neck and bilateral chest wren. There is pneumome diastinum, grossly unchanged. There is mild diffuse bilateral interstitial prominence for which interstitial edema cannot be excluded. There is no pneumothorax or pleural effusion. The heart is normal size. The aorta is uncoiled. Signed: Mariela Moya Verified Date/Time: 03/22/2018 05:05:40 Reading Location: [address] Transitional Reading Room RAD, CHEST, 1 VIEW, NON [id number] 07:26:00Reason for exam:->ptxShould this be performed at the bedside?->YesFINAL REPORT INDICATION: ptx COMPARISON: March 20, 2018 TECHNIQUE: Chest radiograph, single view, portable technique. FINDINGS / IMPRESSION: Pneumomediastinum and neck subcutaneousemphysema again demonstrated. No discrete pneumothorax. Cardiac and mediastinal contours unremarkable. No pulmonary edema, consolidation, or large pleural effusion. Signed: Robbin Villegas MDReport Verified Date/Time: 03/21/2018 07:26:14 Reading Location: [address] Ortho Consult Reading Room W/PLT COUNT & AUTO [id number] 06:21:00 Test Item Value Reference Range Interpretation Comments WHITE BLOOD CELL COUNT (BEAKER) 16.0 K/ L 3.5-10.5 H (test code = 775) RED BLOOD CELL COUNT (BEAKER) 3.40 M/ L 3.93-5.22 L (test code = 761) HEMOGLOBIN (BEAKER) (test code = 9.7 GM/DL 11.2-15.7 L 410) HEMATOCRIT (BEAKER) (test code = 30.6 % 34.1-44.9 L 411) MEAN CORPUSCULAR VOLUME (BEAKER) 90.0 fL 79.4-94.8 (test code = 753) MEAN CORPUSCULAR HEMOGLOBIN 28.5 pg 25.6-32.2 (BEAKER) (test code = 751) MEAN CORPUSCULAR HEMOGLOBIN CONC 31.7 GM/DL 32.2-35.5 L (BEAKER) (test code = 752) RED CELL DISTRIBUTION WIDTH 15.0 % 11.7-14.4 H (BEAKER) (test code = 412) PLATELET COUNT (BEAKER) (test 180 K/CU MM 150-450 code = 756) MEAN PLATELET VOLUME (BEAKER) 11.8 fL 9.4-12.3 (test code = 754) NUCLEATED RED BLOOD CELLS 0 /100 WBC 0-0 (BEAKER) (test code = 413) NEUTROPHILS RELATIVE PERCENT 82 % (BEAKER) (test code = 429) LYMPHOCYTES RELATIVE PERCENT 12 % (BEAKER) (test code = 430) MONOCYTES RELATIVE PERCENT 5 % (BEAKER) (test code = 431) EOSINOPHILS RELATIVE PERCENT 0 % (BEAKER) (test code = 432) BASOPHILS RELATIVE PERCENT 0 % (BEAKER) (test code = 437) NEUTROPHILS ABSOLUTE COUNT 13.01 K/ L 1.56-6.13 H (BEAKER) (test code = 670) LYMPHOCYTES ABSOLUTE COUNT 1.93 K/ L 1.18-3.74 (BEAKER) (test code = 414) MONOCYTES ABSOLUTE COUNT (BEAKER) 0.87 K/ L 0.24-0.36 H (test code = 415) EOSINOPHILS ABSOLUTE COUNT 0.07 K/ L 0.04-0.36 (BEAKER) (test code = 416) BASOPHILS ABSOLUTE COUNT (BEAKER) 0.03 K/ L 0.01-0.08 (test code = 417) IMMATURE GRANULOCYTES-RELATIVE 0 % 0-1 PERCENT (BEAKER) (test code = 2801) [id number] 06:04:00 Test Item Value Reference Range Interpretation Comments MAGNESIUM (BEAKER) (test code = 2.1 mg/dL 1.6-2.6 627) BASIC METABOLIC [id number] 06:04:00 Test Item Value Reference Range Interpretation Comments SODIUM (BEAKER) 136 meq/L 136-145 (test code = 381) POTASSIUM (BEAKER) 3.4 meq/L 3.5-5.1 L (test code = 379) CHLORIDE (BEAKER) 107 meq/L 98-107 (test code = 382) CO2 (BEAKER) (test 23 meq/L 22-29 code = 355) BLOOD UREA NITROGEN 15 mg/dL 7-21 (BEAKER) (test code = 354) CREATININE (BEAKER) 1.00 mg/dL 0.57-1.25 (test code = 358) GLUCOSE RANDOM 130 mg/dL 70-105 H (BEAKER) (test code = 652) CALCIUM (BEAKER) 8.5 mg/dL 8.4-10.2 (test code = 697) EGFR (BEAKER) (test 55 mL/min/1.73 ESTIMA KAITLYN GFR IS code = 1092) sq m NOT ACCURATE CREATININE CLEARANCE IN PREDICTING GLOMERULAR FILTRATION RATE . ESTIMATED GFR I S NOT APPLICABLE FOR DIALYSIS [facility]. [id number] 05:26:00 Test Item Value Reference Range Interpretation Comments PARTIAL THROMBOPLASTIN TIME 50.3 seconds 22.5-36.0 H (BEAKER) (test code = 760) PROTHROMBIN [id number] 05:25:00 Test Item Value Reference Range Interpretation Comments PROTIME (RONEY) (test code = 15.9 seconds 11.7-14.7 H 759) INR (RONEY) (test code = 370) 1.3 <=5.9 RECOMMENDED COUMADIN/WARFARIN INR THERAPY RANGESSTANDARD DOSE: 2.0 - 3.0 Includes: PROPHYLAXIS forvenous thrombosis, systemic embolization; TREATMENT for venous thrombosis and/or pulmonary embolus.HIGH RISK: Target INR is 2.5-3.5 for patients with mechanical heart valves.FL, ESOPH, SWALLOW FUNCTION, WITH CINE OR [id number] 14:33:00Reason for exam:->s/p heller myotomy, kayleigh fundoplication before noon per Dr. Morelos, does notneed IRRIGATION MANAGER for this exam FINAL REPORT INDICATION:67-year-old female status post Heller myotomy and gastric fundoplication yesterday. Evaluate for leak. COMPARISON: None. TECHNIQUE: Fluoroscopic esophagram single contrast with Gastrografin.Fluoroscopy time 0.6 minutes.Acquired fluoroscopic images 7. FINDI NGS:The patient was positioned supine in slight reverse Trendelenburg on the fluoroscopy table. The patient was administered 120 cc of Gastrografin by mouth. Contrast passed through the esophagus and through the wrap at the GE junction. No extraluminal contrast demonstrated. A few tertiary contractions noted. IMPRESSION:No evidence of leak after esophageal myotomy. Intact gastric wrap. Signed: Robbin Villegas MDReport Verified Date/Time: 03/20/2018 14:33:42 Reading Location: [facility] B1 C013X Ortho Consult Reading Room RAD, CHEST, 1 VIEW, NON [id number] 07:18:00Reason for exam:->ptxShould this be performed at [...] [place] Verified Date/Time: 03/20/2018 07:18:12 Reading Location: [facility] Radiology Reading Room CBC W/PLT COUNT & AUTO [id number] 05:56:00 Test Item Value Reference Range Interpretation Comments WHITE BLOOD CELL COUNT (BEAKER) 14.4 K/ L 3.5-10.5 H (test code = 775) RED BLOOD CELL COUNT (BEAKER) 3.67 M/ L 3.93-5.22 L (test code = 761) HEMOGLOBIN (BEAKER) (test code = 10.4 GM/DL 11.2-15.7 L 410) HEMATOCRIT (BEAKER) (test code = 33.7 % 34.1-44.9 L 411) MEAN CORPUSCULAR VOLUME (BEAKER) 91.8 fL 79.4-94.8 (test code = 753) MEAN CORPUSCULAR HEMOGLOBIN 28.3 pg 25.6-32.2 (BEAKER) (test code = 751) MEAN CORPUSCULAR HEMOGLOBIN CONC 30.9 GM/DL 32.2-35.5 L (BEAKER) (test code = 752) RED CELL DISTRIBUTION WIDTH 15.0 % 11.7-14.4 H (BEAKER) (test code = 412) PLATELET COUNT (BEAKER) (test 178 K/CU MM 150-450 code = 756) MEAN PLATELET VOLUME (BEAKER) 11.9 fL 9.4-12.3 (test code = 754) NUCLEATED RED BLOOD CELLS 0 /100 WBC 0-0 (BEAKER) (test code = 413) NEUTROPHILS RELATIVE PERCENT 87 % (BEAKER) (test code = 429) LYMPHOCYTES RELATIVE PERCENT 7 % (BEAKER) (test code = 430) MONOCYTES RELATIVE PERCENT 5 % (BEAKER) (test code = 431) EOSINOPHILS RELATIVE PERCENT 0 % (BEAKER) (test code = 432) BASOPHILS RELATIVE PERCENT 0 % (BEAKER) (test code = 437) NEUTROPHILS ABSOLUTE COUNT 12.54 K/ L 1.56-6.13 H (BEAKER) (test code = 670) LYMPHOCYTES ABSOLUTE COUNT 1.05 K/ L 1.18-3.74 L (BEAKER) (test code = 414) MONOCYTES ABSOLUTE COUNT (BEAKER) 0.72 K/ L 0.24-0.36 H (test code = 415) EOSINOPHILS ABSOLUTE COUNT 0.00 K/ L 0.04-0.36 L (BEAKER) (test code = 416) BASOPHILS ABSOLUTE COUNT (BEAKER) 0.02 K/ L 0.01-0.08 (test code = 417) IMMATURE GRANULOCYTES-RELATIVE 0 % 0-1 PERCENT (BEAKER) (test code = 2801) [id number] 05:52:00 Test Item Value Reference Range Interpretation Comments MAGNESIUM (BEAKER) (test code = 2.1 mg/dL 1.6-2.6 627) BASIC METABOLIC [id number] 05:52:00 Test Item Value Reference Range Interpretation Comments SODIUM (BEAKER) 138 meq/L 136-145 (test code = 381) POTASSIUM (BEAKER) 4.2 meq/L 3.5-5.1 (test code = 379) CHLORIDE (BEAKER) 109 meq/L 98-107 H (test code = 382) CO2 (BEAKER) (test 20 meq/L 22-29 L code = 355) BLOOD UREA NITROGEN 17 mg/dL 7-21 (BEAKER) (test code = 354) CREATININE (BEAKER) 1.07 mg/dL 0.57-1.25 (test code = 358) GLUCOSE RANDOM 113 mg/dL 70-105 H (BEAKER) (test code = 652) CALCIUM (BEAKER) 8.5 mg/dL 8.4-10.2 (test code = 697) EGFR (BEAKER) (test 51 mL/min/1.73 ESTIMA KAITLYN GFR IS code = 1092) sq m NOT ACCURATE CREATININE CLEARANCE IN PREDICTING GLOMERULAR FILTRATION RATE . ESTIMATED GFR I S NOT APPLICABLE FOR DIALYSIS PATIEN TS. PROTHROMBIN [id number] 05:28:00 Test Item Value Reference Range Interpretation Comments PROTIME (BEAKER) (test code = 15.5 seconds 11.7-14.7 H 759) INR (BEAKER) (test code = 370) 1.2 <=5.9 RECOMMENDED COUMADIN/WARFARIN INR THERAPY RANGESSTANDARD DOSE: 2.0 - 3.0 Includes: PROPHYLAXIS forvenous thrombosis, systemic embolization; TREATMENT for venous thrombosis and/or pulmonary embolus.HIGH RISK: Target INR is 2.5-3.5 for patients with mechanical heart valves.[id number] 05:28:00 Test Item Value Reference Range Interpretation Comments PARTIAL THROMBOPLASTIN TIME 32.3 seconds 22.5-36.0 (BEAKER) (test code = 760) BLOOD GAS, [id number] 05:25:00 Test Item Value Reference Range Interpretation Comments PH ARTERIAL (BEAKER) (test code = 7.38 7.35-7.45 383) PCO2 ARTERIAL (BEAKER) (test code 38 mmHg 35-45 = 384) PO2 ARTERIAL (BEAKER) (test code 149 mmHg 80-90 H = 385) O2 SATURATION ARTERIAL (BEAKER) 98.9 % 96.0-97.0 H (test code = 386) HCO3 ARTERIAL (BEAKER) (test code 22 mmol/L 21-29 = 388) BASE EXCESS ARTERIAL (BEAKER) -2.6 mmol/L -2.0-3.0 L (test code = 387) PATIENT TEMPERATURE (BEAKER) 37.0 C (test code = 1818) FIO2 (BEAKER) (test code = 1819) 28.0 % RAD, CHEST, 1 VIEW, NON [id number] 23:59[facility]00[facility]->postop CXRShould this be performed at the bedside?- >YesFINAL REPORT Chest one view. Clinical history: postop CXR Comparison: March Discussion: A frontal chest is provided. Cardiomediastinal contours are unchanged. Subcutaneous emphysema is noted in the lower neck and bilateral anterior chest wall. There is also pneumomediast inum and probable mild pneumopericardium. There is a small right apical pneumothorax. No definite pneumothorax is seen on the left. Mild bibasilar atelectasis is present. No discrete consolidation, or large effusion. No acute bony abnormality. Findings discussed with patient's nurse Gauri. Signed:Cori, Roldan MDReport Verified Date/Time: 03/19/2018 23:59:46 Reading Location: [facility] C013W Consult Reading Room [id number] 19:21:00 Test Item Value Reference Range Interpretation Comments MAGNESIUM (BEAKER) (test code = 2.0 mg/dL 1.6-2.6 627) BASIC METABOLIC [id number] 19:21:00 Test Item Value Reference Range Interpretation Comments SODIUM (BEAKER) 139 meq/L 136-145 (test code = 381) POTASSIUM (BEAKER) 3.8 meq/L 3.5-5.1 (test code = 379) CHLORIDE (BEAKER) 110 meq/L 98-107 H (test code = 382) CO2 (BEAKER) (test 19 meq/L 22-29 L code = 355) BLOOD UREA NITROGEN 15 mg/dL 7-21 (BEAKER) (test code = 354) CREATININE (BEAKER) 1.14 mg/dL 0.57-1.25 (test code = 358) GLUCOSE RANDOM 133 mg/dL 70-105 H (BEAKER) (test code = 652) CALCIUM (BEAKER) 8.2 mg/dL 8.4-10.2 L (test code = 697) EGFR (BEAKER) (test 48 mL/min/1.73 ESTIMA KAITLYN GFR IS code = 1092) sq m NOT ACCURATE CREATININE CLEARANCE IN PREDICTING GLOMERULAR FILTRATION RATE . ESTIMATED GFR I S NOT APPLICABLE FOR DIALYSIS PATIEN TS. [id number] 19:12:00 Test Item Value Reference Range Interpretation Comments PARTIAL THROMBOPLASTIN TIME 30.1 seconds 22.5-36.0 (BEAKER) (test code = 760) PROTHROMBIN [id number] 19:11:00 Test Item Value Reference Range Interpretation Comments PROTIME (BEAKER) (test code = 15.6 seconds 11.7-14.7 H 759) INR (BEAKER) (test code = 370) 1.2 <=5.9 RECOMMENDED COUMADIN/WARFARIN INR THERAPY RANGESSTANDARD DOSE: 2.0 - 3.0 Includes: PROPHYLAXIS forvenous thrombosis, systemic embolization; TREATMENT for venous thrombosis and/or pulmonary embolus.HIGH RISK: Target INR is 2.5-3.5 for patients with mechanical heart valves.CBC W/PLT COUNT & AUTO DIFFERENTIAL 2018-03-19 19:07:00 Test Item Value Reference Range Interpretation Comments WHITE BLOOD CELL COUNT (BEAKER) 14.7 K/ L 3.5-10.5 H (test code = 775) RED BLOOD CELL COUNT (BEAKER) 3.64 M/ L 3.93-5.22 L (test code = 761) HEMOGLOBIN (BEAKER) (test code = 10.4 GM/DL 11.2-15.7 L 410) HEMATOCRIT (BEAKER) (test code = 32.8 % 34.1-44.9 L 411) MEAN CORPUSCULAR VOLUME (BEAKER) 90.1 fL 79.4-94.8 (test code = 753) MEAN CORPUSCULAR HEMOGLOBIN 28.6 pg 25.6-32.2 (BEAKER) (test code = 751) MEAN CORPUSCULAR HEMOGLOBIN CONC 31.7 GM/DL 32.2-35.5 L (BEAKER) (test code = 752) RED CELL DISTRIBUTION WIDTH 14.8 % 11.7-14.4 H (BEAKER) (test code = 412) PLATELET COUNT (BEAKER) (test 169 K/CU MM 150-450 code = 756) MEAN PLATELET VOLUME (BEAKER) 11.1 fL 9.4-12.3 (test code = 754) NUCLEATED RED BLOOD CELLS 0 /100 WBC 0-0 (BEAKER) (test code = 413) NEUTROPHILS RELATIVE PERCENT 83 % (BEAKER) (test code = 429) LYMPHOCYTES RELATIVE PERCENT 9 % (BEAKER) (test code = 430) MONOCYTES RELATIVE PERCENT 7 % (BEAKER) (test code = 431) EOSINOPHILS RELATIVE PERCENT 0 % (BEAKER) (test code = 432) BASOPHILS RELATIVE PERCENT 0 % (BEAKER) (test code = 437) NEUTROPHILS ABSOLUTE COUNT 12.22 K/ L 1.56-6.13 H (BEAKER) (test code = 670) LYMPHOCYTES ABSOLUTE COUNT 1.30 K/ L 1.18-3.74 (BEAKER) (test code = 414) MONOCYTES ABSOLUTE COUNT (BEAKER) 1.06 K/ L 0.24-0.36 H (test code = 415) EOSINOPHILS ABSOLUTE COUNT 0.06 K/ L 0.04-0.36 (BEAKER) (test code = 416) BASOPHILS ABSOLUTE COUNT (BEAKER) 0.02 K/ L 0.01-0.08 (test code = 417) IMMATURE GRANULOCYTES-RELATIVE 0 % 0-1 PERCENT (BEAKER) (test code = 2801) CALCIUM, [id number] 18:57:00 Test Item Value Reference Range Interpretation Comments CALCIUM IONIZED (BEAKER) (test 1.07 mmol/L 1.12-1.27 L code = 698) PH, BLOOD (BEAKER) (test code = 7.31 1810) POCT-GLUCOSE [id number] 11:08:00 Test Item Value Reference Range Interpretation Comments POC-GLUCOSE METER 98 mg/dL 70-[address] [facility] [address] ([facility]) (test code = [place] [address] 1538) RAD, CHEST, 2 [id number] 12:11:00Reason for exam:->preopFINAL REPORT PA and lateral chest HISTORY: Preoperative. Dysphagia. GERD. COMPARISON: 05/12/2017 IMPRESSION:Intact skeleton. Heart size normal. New scattered faint nodular opacities throughout both lungs are nonspecific and may reflect an underlying infectious or inflammatory etiology, such as from aspiration pneumonitis. No effusion or pneumothorax. Chest CT can be performed f or further characterization. Findings were discussed with Dr. Reyes by telephone at 12:10 p.m. on 03/16/2018. Signed: David Lang MDReport Verified Date/Time: 03/16/2018 12:11:07 Reading Location: [address] Radiology Reading Room REHENSIVE METABOLIC [id number] 12:03:00 Test Item Value Reference Range Interpretation Comments TOTAL PROTEIN 7.6 gm/dL 6.0-8.3 (BEAKER) (test code = 770) ALBUMIN (BEAKER) 4.1 g/dL 3.5-5.0 (test code = 1145) ALKALINE PHOSPHATASE 88 U/L 40-150 (BEAKER) (test code = 346) BILIRUBIN TOTAL 0.4 mg/dL 0.2-1.2 (BEAKER) (test code = 377) SODIUM (BEAKER) (test 136 meq/L 136-145 code = 381) POTASSIUM (BEAKER) 4.2 meq/L 3.5-5.1 (test code = 379) CHLORIDE (BEAKER) 104 meq/L 98-107 (test code = 382) CO2 (BEAKER) (test 25 meq/L 22-29 code = 355) BLOOD UREA NITROGEN 13 mg/dL 7-21 (BEAKER) (test code = 354) CREATININE (BEAKER) 0.98 mg/dL 0.57-1.25 (test code = 358) GLUCOSE RANDOM 88 mg/dL 70-105 (BEAKER) (test code = 652) CALCIUM (BEAKER) 9.3 mg/dL 8.4-10.2 (test code = 697) AST (SGOT) (BEAKER) 14 U/L 5-34 (test code = 353) ALT (SGPT) (BEAKER) 12 U/L 6-55 (test code = 347) EGFR (BEAKER) (test 57 mL/min/1.73 ESTIMA KAITLYN GFR IS code = 1092) sq m NOT ACCURATE CREATININE CLEARANCE IN PREDICTING GLOMERULAR FILTRATION RATE . ESTIMATED GFR I S NOT APPLICABLE FOR DIALYSIS PATIEN TS. [id number] 11:54:00 Test Item Value Reference Range Interpretation Comments PROTIME (BEAKER) (test code = 14.6 seconds 11.7-14.7 759) INR (BEAKER) (test code = 370) 1.1 <=5.9 PARTIAL THROMBOPLASTIN TIME 33.3 seconds 22.5-36.0 (BEAKER) (test code = 760) RECOMMENDED COUMADIN/WARFARIN INR THERAPY RANGESSTANDARD DOSE: 2.0 - 3.0 Includes: PROPHYLAXIS forvenous thrombosis, systemic embolization; TREATMENT for venous thrombosis and/or pulmonary embolus.HIGH RISK: Target INR is 2.5-3.5 for patients with mechanical heart valves.CBC W/PLT COUNT & AUTO DIFFERENTIAL 2018-03-16 11:41:00 Test Item Value Reference Range Interpretation Comments WHITE BLOOD CELL COUNT (BEAKER) 9.7 K/ L 3.5-10.5 (test code = 775) RED BLOOD CELL COUNT (BEAKER) 4.10 M/ L 3.93-5.22 (test code = 761) HEMOGLOBIN (BEAKER) (test code = 11.6 GM/DL 11.2-15.7 410) HEMATOCRIT (BEAKER) (test code = 36.6 % 34.1-44.9 411) MEAN CORPUSCULAR VOLUME (BEAKER) 89.3 fL 79.4-94.8 (test code = 753) MEAN CORPUSCULAR HEMOGLOBIN 28.3 pg 25.6-32.2 (BEAKER) (test code = 751) MEAN CORPUSCULAR HEMOGLOBIN CONC 31.7 GM/DL 32.2-35.5 L (BEAKER) (test code = 752) RED CELL DISTRIBUTION WIDTH 14.9 % 11.7-14.4 H (BEAKER) (test code = 412) PLATELET COUNT (BEAKER) (test 214 K/CU MM 150-450 code = 756) MEAN PLATELET VOLUME (BEAKER) 11.8 fL 9.4-12.3 (test code = 754) NUCLEATED RED BLOOD CELLS 0 /100 WBC 0-0 (BEAKER) (test code = 413) NEUTROPHILS RELATIVE PERCENT 66 % (BEAKER) (test code = 429) LYMPHOCYTES RELATIVE PERCENT 22 % (BEAKER) (test code = 430) MONOCYTES RELATIVE PERCENT 10 % (BEAKER) (test code = 431) EOSINOPHILS RELATIVE PERCENT 1 % (BEAKER) (test code = 432) BASOPHILS RELATIVE PERCENT 1 % (BEAKER) (test code = 437) NEUTROPHILS ABSOLUTE COUNT 6.45 K/ L 1.56-6.13 H (BEAKER) (test code = 670) LYMPHOCYTES ABSOLUTE COUNT 2.15 K/ L 1.18-3.74 (BEAKER) (test code = 414) MONOCYTES ABSOLUTE COUNT (BEAKER) 0.94 K/ L 0.24-0.36 H (test code = 415) EOSINOPHILS ABSOLUTE COUNT 0.09 K/ L 0.04-0.36 (BEAKER) (test code = 416) BASOPHILS ABSOLUTE COUNT (BEAKER) 0.06 K/ L 0.01-0.08 (test code = 417) IMMATURE GRANULOCYTES-RELATIVE 0 % 0-1 PERCENT (BEAKER) (test code = 2801) BASIC METABOLIC [id number] 06:19:00 Test Item Value Reference Range Interpretation Comments SODIUM (BEAKER) 139 meq/L 136-145 (test code = 381) POTASSIUM (BEAKER) 3.9 meq/L 3.5-5.1 (test code = 379) CHLORIDE (BEAKER) 109 meq/L 98-107 H (test code = 382) CO2 (BEAKER) (test 22 meq/L 22-29 code = 355) BLOOD UREA NITROGEN 14 mg/dL 7-21 (BEAKER) (test code = 354) CREATININE (BEAKER) 0.87 mg/dL 0.57-1.25 (test code = 358) GLUCOSE RANDOM 95 mg/dL 70-105 (BEAKER) (test code = 652) CALCIUM (BEAKER) 9.2 mg/dL 8.4-10.2 (test code = 697) EGFR (BEAKER) (test 65 mL/min/1.73 ESTIMA KAITLYN GFR IS code = 1092) sq m NOT ACCURATE CREATININE CLEARANCE IN PREDICTING GLOMERULAR FILTRATION RATE . ESTIMATED GFR I S NOT APPLICABLE FOR DIALYSIS PATIEN TS. CBC W/PLT COUNT & AUTO [id number] 06:01:00 Test Item Value Reference Range Interpretation Comments WHITE BLOOD CELL COUNT (BEAKER) 8.4 K/ L 4.0-10.0 (test code = 775) RED BLOOD CELL COUNT (BEAKER) 3.82 M/ L 4.00-5.00 L (test code = 761) HEMOGLOBIN (BEAKER) (test code = 11.9 GM/DL 12.0-15.0 L 410) HEMATOCRIT (BEAKER) (test code = 35.8 % 36.0-45.0 L 411) MEAN CORPUSCULAR VOLUME (BEAKER) 93.6 fL 82.0-99.0 (test code = 753) MEAN CORPUSCULAR HEMOGLOBIN 31.0 pg 27.0-33.0 (BEAKER) (test code = 751) MEAN CORPUSCULAR HEMOGLOBIN CONC 33.1 GM/DL 32.0-36.0 (BEAKER) (test code = 752) RED CELL DISTRIBUTION WIDTH 12.7 % 10.3-14.2 (BEAKER) (test code = 412) PLATELET COUNT (BEAKER) (test 153 K/CU MM 150-430 code = 756) MEAN PLATELET VOLUME (BEAKER) 8.8 fL 6.5-10.5 (test code = 754) NUCLEATED RED BLOOD CELLS 0 /100 WBC 0-0 (BEAKER) (test code = 413) NEUTROPHILS RELATIVE PERCENT 54 % (BEAKER) (test code = 429) LYMPHOCYTES RELATIVE PERCENT 35 % (BEAKER) (test code = 430) MONOCYTES RELATIVE PERCENT 8 % (BEAKER) (test code = 431) EOSINOPHILS RELATIVE PERCENT 3 % (BEAKER) (test code = 432) BASOPHILS RELATIVE PERCENT 1 % (BEAKER) (test code = 437) NEUTROPHILS ABSOLUTE COUNT 4.51 K/ L 1.80-8.00 (BEAKER) (test code = 670) LYMPHOCYTES ABSOLUTE COUNT 2.94 K/ L 1.48-4.50 (BEAKER) (test code = 414) MONOCYTES ABSOLUTE COUNT (BEAKER) 0.65 K/ L 0.00-1.30 (test code = 415) EOSINOPHILS ABSOLUTE COUNT 0.26 K/ L 0.00-0.50 (BEAKER) (test code = 416) BASOPHILS ABSOLUTE COUNT (BEAKER) 0.06 K/ L 0.00-0.20 (test code = 417) 0.00CBC W/PLT COUNT & AUTO [id number] 06:59:00 Test Item Value Reference Range Interpretation Comments WHITE BLOOD CELL COUNT (BEAKER) 9.0 K/ L 4.0-10.0 (test code = 775) RED BLOOD CELL COUNT (BEAKER) 4.00 M/ L 4.00-5.00 (test code = 761) HEMOGLOBIN (BEAKER) (test code = 12.2 GM/DL 12.0-15.0 410) HEMATOCRIT (BEAKER) (test code = 37.7 % 36.0-45.0 411) MEAN CORPUSCULAR VOLUME (BEAKER) 94.1 fL 82.0-99.0 (test code = 753) MEAN CORPUSCULAR HEMOGLOBIN 30.5 pg 27.0-33.0 (BEAKER) (test code = 751) MEAN CORPUSCULAR HEMOGLOBIN CONC 32.5 GM/DL 32.0-36.0 (BEAKER) (test code = 752) RED CELL DISTRIBUTION WIDTH 12.9 % 10.3-14.2 (BEAKER) (test code = 412) PLATELET COUNT (BEAKER) (test 165 K/CU MM 150-430 code = 756) MEAN PLATELET VOLUME (BEAKER) 9.3 fL 6.5-10.5 (test code = 754) NUCLEATED RED BLOOD CELLS 0 /100 WBC 0-0 (BEAKER) (test code = 413) NEUTROPHILS RELATIVE PERCENT 56 % (BEAKER) (test code = 429) LYMPHOCYTES RELATIVE PERCENT 31 % (BEAKER) (test code = 430) MONOCYTES RELATIVE PERCENT 9 % (BEAKER) (test code = 431) EOSINOPHILS RELATIVE PERCENT 3 % (BEAKER) (test code = 432) BASOPHILS RELATIVE PERCENT 1 % (BEAKER) (test code = 437) NEUTROPHILS ABSOLUTE COUNT 5.07 K/ L 1.80-8.00 (BEAKER) (test code = 670) LYMPHOCYTES ABSOLUTE COUNT 2.78 K/ L 1.48-4.50 (BEAKER) (test code = 414) MONOCYTES ABSOLUTE COUNT (BEAKER) 0.81 K/ L 0.00-1.30 (test code = 415) EOSINOPHILS ABSOLUTE COUNT 0.29 K/ L 0.00-0.50 (BEAKER) (test code = 416) BASOPHILS ABSOLUTE COUNT (BEAKER) 0.07 K/ L 0.00-0.20 (test code = 417) 0.00BASIC METABOLIC [id number] 06:39:00 Test Item Value Reference Range Interpretation Comments SODIUM (BEAKER) 137 meq/L 136-145 (test code = 381) POTASSIUM (BEAKER) 4.1 meq/L 3.5-5.1 (test code = 379) CHLORIDE (BEAKER) 108 meq/L 98-107 H (test code = 382) CO2 (BEAKER) (test 23 meq/L 22-29 code = 355) BLOOD UREA NITROGEN 14 mg/dL 7-21 (BEAKER) (test code = 354) CREATININE (BEAKER) 0.86 mg/dL 0.57-1.25 (test code = 358) GLUCOSE RANDOM 88 mg/dL 70-105 (BEAKER) (test code = 652) CALCIUM (BEAKER) 9.0 mg/dL 8.4-10.2 (test code = 697) EGFR (BEAKER) (test 66 mL/min/1.73 ESTIMA KAITLYN GFR IS code = 1092) sq m NOT ACCURATE CREATININE CLEARANCE IN PREDICTING GLOMERULAR FILTRATION RATE . ESTIMATED GFR I S NOT APPLICABLE FOR DIALYSIS PATIEN TS. PROTEIN ELECTROPHORESIS, [id number] 12:03:00 Test Item Value Reference Range Interpretation Comments ALBUMIN FRACTION 3.6 g/dL 3.5-5.5 (BEAKER) (test code = 405) ALPHA 1 FRACTION 0.2 g/dL 0.2-0.4 (BEAKER) (test code = 389) ALPHA 2 FRACTION 0.6 g/dL 0.5-0.9 (BEAKER) (test code = 390) BETA FRACTION (BEAKER) 0.9 g/dL 0.6-1.1 (test code = 392) GAMMA GLOBULIN 1.5 g/dL 0.7-1.7 FRACTION (BEAKER) (test code = 391) INTERPRETATION-119 All fractions present (BEAKER) (test code = in expected 2610) distribution. No monoclonal bands detected. [id number] Desi Calvin MD (BEAKER) (test code = (electronic signature) 2989) PROTEIN TOTAL SERUM, 6.8 gm/dL 6.0-8.3 SPEP (BEAKER) (test code = 8390) BASIC METABOLIC [id number] 07:22:00 Test Item Value Reference Range Interpretation Comments SODIUM (BEAKER) 139 meq/L 136-145 (test code = 381) POTASSIUM (BEAKER) 4.0 meq/L 3.5-5.1 (test code = 379) CHLORIDE (BEAKER) 108 meq/L 98-107 H (test code = 382) CO2 (BEAKER) (test 23 meq/L 22-29 code = 355) BLOOD UREA NITROGEN 16 mg/dL 7-21 (BEAKER) (test code = 354) CREATININE (BEAKER) 0.88 mg/dL 0.57-1.25 (test code = 358) GLUCOSE RANDOM 96 mg/dL 70-105 (BEAKER) (test code = 652) CALCIUM (BEAKER) 9.3 mg/dL 8.4-10.2 (test code = 697) EGFR (BEAKER) (test 64 mL/min/1.73 ESTIMA KAITLYN GFR IS code = 1092) sq m NOT ACCURATE CREATININE CLEARANCE IN PREDICTING GLOMERULAR FILTRATION RATE . ESTIMATED GFR I S NOT APPLICABLE FOR DIALYSIS PATIEN TS. CBC W/PLT COUNT & AUTO [id number] 07:16:00 Test Item Value Reference Range Interpretation Comments WHITE BLOOD CELL COUNT (BEAKER) 8.9 K/ L 4.0-10.0 (test code = 775) RED BLOOD CELL COUNT (BEAKER) 4.08 M/ L 4.00-5.00 (test code = 761) HEMOGLOBIN (BEAKER) (test code = 12.1 GM/DL 12.0-15.0 410) HEMATOCRIT (BEAKER) (test code = 38.3 % 36.0-45.0 411) MEAN CORPUSCULAR VOLUME (BEAKER) 94.0 fL 82.0-99.0 (test code = 753) MEAN CORPUSCULAR HEMOGLOBIN 29.7 pg 27.0-33.0 (BEAKER) (test code = 751) MEAN CORPUSCULAR HEMOGLOBIN CONC 31.7 GM/DL 32.0-36.0 L (BEAKER) (test code = 752) RED CELL DISTRIBUTION WIDTH 12.9 % 10.3-14.2 (BEAKER) (test code = 412) PLATELET COUNT (BEAKER) (test 160 K/CU MM 150-430 code = 756) MEAN PLATELET VOLUME (BEAKER) 9.0 fL 6.5-10.5 (test code = 754) NUCLEATED RED BLOOD CELLS 0 /100 WBC 0-0 (BEAKER) (test code = 413) NEUTROPHILS RELATIVE PERCENT 57 % (BEAKER) (test code = 429) LYMPHOCYTES RELATIVE PERCENT 30 % (BEAKER) (test code = 430) MONOCYTES RELATIVE PERCENT 9 % (BEAKER) (test code = 431) EOSINOPHILS RELATIVE PERCENT 4 % (BEAKER) (test code = 432) BASOPHILS RELATIVE PERCENT 1 % (BEAKER) (test code = 437) NEUTROPHILS ABSOLUTE COUNT 5.07 K/ L 1.80-8.00 (BEAKER) (test code = 670) LYMPHOCYTES ABSOLUTE COUNT 2.69 K/ L 1.48-4.50 (BEAKER) (test code = 414) MONOCYTES ABSOLUTE COUNT (BEAKER) 0.77 K/ L 0.00-1.30 (test code = 415) EOSINOPHILS ABSOLUTE COUNT 0.31 K/ L 0.00-0.50 (BEAKER) (test code = 416) BASOPHILS ABSOLUTE COUNT (BEAKER) 0.06 K/ L 0.00-0.20 (test code = 417) 0.00BASI METABOLIC [id number] 04:49:00 Test Item Value Reference Range Interpretation Comments SODIUM (BEAKER) 138 meq/L 136-145 (test code = 381) POTASSIUM (BEAKER) 3.8 meq/L 3.5-5.1 (test code = 379) CHLORIDE (BEAKER) 108 meq/L 98-107 H (test code = 382) CO2 (BEAKER) (test 21 meq/L 22-29 L code = 355) BLOOD UREA NITROGEN 18 mg/dL 7-21 (BEAKER) (test code = 354) CREATININE (BEAKER) 1.01 mg/dL 0.57-1.25 (test code = 358) GLUCOSE RANDOM 101 mg/dL 70-105 (BEAKER) (test code = 652) CALCIUM (BEAKER) 8.9 mg/dL 8.4-10.2 (test code = 697) EGFR (BEAKER) (test 55 mL/min/1.73 ESTIMA KAITLYN GFR IS code = 1092) sq m NOT ACCURATE CREATININE CLEARANCE IN PREDICTING GLOMERULAR FILTRATION RATE . ESTIMATED GFR I S NOT APPLICABLE FOR DIALYSIS PATIEN TS. CBC W/PLT COUNT & AUTO [id number] 04:24:00 Test Item Value Reference Range Interpretation Comments WHITE BLOOD CELL COUNT (BEAKER) 8.6 K/ L 4.0-10.0 (test code = 775) RED BLOOD CELL COUNT (BEAKER) 3.75 M/ L 4.00-5.00 L (test code = 761) HEMOGLOBIN (BEAKER) (test code = 11.8 GM/DL 12.0-15.0 L 410) HEMATOCRIT (BEAKER) (test code = 34.6 % 36.0-45.0 L 411) MEAN CORPUSCULAR VOLUME (BEAKER) 92.2 fL 82.0-99.0 (test code = 753) MEAN CORPUSCULAR HEMOGLOBIN 31.4 pg 27.0-33.0 (BEAKER) (test code = 751) MEAN CORPUSCULAR HEMOGLOBIN CONC 34.1 GM/DL 32.0-36.0 (BEAKER) (test code = 752) RED CELL DISTRIBUTION WIDTH 14.0 % 10.3-14.2 (BEAKER) (test code = 412) PLATELET COUNT (BEAKER) (test 149 K/CU MM 150-430 L code = 756) MEAN PLATELET VOLUME (BEAKER) 8.9 fL 6.5-10.5 (test code = 754) NUCLEATED RED BLOOD CELLS 0 /100 WBC 0-0 (BEAKER) (test code = 413) NEUTROPHILS RELATIVE PERCENT 54 % (BEAKER) (test code = 429) LYMPHOCYTES RELATIVE PERCENT 34 % (BEAKER) (test code = 430) MONOCYTES RELATIVE PERCENT 9 % (BEAKER) (test code = 431) EOSINOPHILS RELATIVE PERCENT 3 % (BEAKER) (test code = 432) BASOPHILS RELATIVE PERCENT 0 % (BEAKER) (test code = 437) NEUTROPHILS ABSOLUTE COUNT 4.62 K/ L 1.80-8.00 (BEAKER) (test code = 670) LYMPHOCYTES ABSOLUTE COUNT 2.91 K/ L 1.48-4.50 (BEAKER) (test code = 414) MONOCYTES ABSOLUTE COUNT (BEAKER) 0.74 K/ L 0.00-1.30 (test code = 415) EOSINOPHILS ABSOLUTE COUNT 0.28 K/ L 0.00-0.50 (BEAKER) (test code = 416) BASOPHILS ABSOLUTE COUNT (BEAKER) 0.04 K/ L 0.00-0.20 (test code = 417) 0.00VITAMIN [id number] 19:06:00 Test Item Value Reference Range Interpretation Comments VITAMIN B12 (BEAKER) (test code = 1150 pg/mL 213-816 H 774) TSH/FREE T4 IF [id number] 19:00:00 Test Item Value Reference Range Interpretation Comments THYROID STIMULATING HORMONE 0.39 uIU/mL 0.35-4.94 (BEAKER) (test code = 772) TROPONIN [id number] 18:44:00 Test Item Value Reference Range Interpretation Comments TROPONIN I (BEAKER) (test code = 397) < ng/mL 0.00-0.03 Effective 09/27/2014: Reference Range [...] and persistent tachyarrhythmia.CREATINE KINASE (CK), TOTAL AND MB 2017-05-12 14:57:00 Test Item Value Reference Range Interpretation Comments CREATINE KINASE TOTAL (KARLEEAKER) 62 U/L 29-200 (test code = 380) CREATINE KINASE-MB (BEAKER) (test 0.6 ng/mL 0.0-6.6 code = 750) CREATINE KINASE-MB INDEX (BEAKER) 1.0 % (test code = 395) Effective 09/27/2014: CK-MB Reference Range ChangeNew: 0.0-6.6 Previous: 0.0-4.9CK-MB Reference Range:<6.7 Normal6.7-10.0 Borderline>10.0 AbnormalTROPONIN [id number] 14:57:00 Test Item Value Reference Range Interpretation Comments TROPONIN I (BEAKER) (test code = 397) < ng/mL 0.00-0.03 Effective 09/27/2014: Reference Range [...] acidosis, acute neurological disease, and persistent tachyarrhythmia.PROTHROMBIN [id number] 14:53:00 Test Item Value Reference Range Interpretation Comments PROTIME (BEAKER) (test code = 14.4 seconds 11.7-14.7 759) INR (BEAKER) (test code = 370) 1.1 <=5.9 RECOMMENDED COUMADIN/WARFARIN INR THERAPY RANGESSTANDARD DOSE: 2.0 - 3.0 Includes: PROPHYLAXIS forvenous thrombosis, systemic embolization; TREATMENT for venous thrombosis and/or pulmonary embolus.HIGH RISK: Target INR is 2.5-3.5 for patients with mechanical heart valves.HEMOGLOBIN [id number] 14:52:00 Test Item Value Reference Range Interpretation Comments HEMOGLOBIN A1C (BEAKER) (test code = 5.7 % 4.3-6.1 368) [id number] 14:50:00 Test Item Value Reference Range Interpretation Comments MAGNESIUM (BEAKER) (test code = 2.0 mg/dL 1.6-2.6 627) BASIC METABOLIC [id number] 14:50:00 Test Item Value Reference Range Interpretation Comments SODIUM (BEAKER) 138 meq/L 136-145 (test code = 381) POTASSIUM (BEAKER) 3.8 meq/L 3.5-5.1 (test code = 379) CHLORIDE (BEAKER) 104 meq/L 98-107 (test code = 382) CO2 (BEAKER) (test 25 meq/L 22-29 code = 355) BLOOD UREA NITROGEN 15 mg/dL 7-21 (BEAKER) (test code = 354) CREATININE (BEAKER) 0.93 mg/dL 0.57-1.25 (test code = 358) GLUCOSE RANDOM 92 mg/dL 70-105 (BEAKER) (test code = 652) CALCIUM (BEAKER) 9.7 mg/dL 8.4-10.2 (test code = 697) EGFR (BEAKER) (test 60 mL/min/1.73 ESTIMA KAITLYN GFR IS code = 1092) sq m NOT ACCURATE CREATININE CLEARANCE IN PREDICTING GLOMERULAR FILTRATION RATE . ESTIMATED GFR I S NOT APPLICABLE FOR DIALYSIS PATIEN TS. HEPATIC FUNCTION [id number] 14:50:00 Test Item Value Reference Range Interpretation Comments TOTAL PROTEIN (BEAKER) (test code = 7.5 gm/dL 6.0-8.3 770) ALBUMIN (BEAKER) (test code = 1145) 4.0 g/dL 3.5-5.0 BILIRUBIN TOTAL (BEAKER) (test code 0.5 mg/dL 0.2-1.2 = 377) BILIRUBIN DIRECT (BEAKER) (test 0.2 mg/dL 0.1-0.5 code = 706) ALKALINE PHOSPHATASE (BEAKER) (test 79 U/L 40-150 code = 346) AST (SGOT) (BEAKER) (test code = 24 U/L 5-34 353) ALT (SGPT) (BEAKER) (test code = 23 U/L 6-55 347) CBC W/PLT COUNT & AUTO [id number] 14:46:00 Test Item Value Reference Range Interpretation Comments WHITE BLOOD CELL COUNT (BEAKER) 10.3 K/ L 4.0-10.0 H (test code = 775) RED BLOOD CELL COUNT (BEAKER) 4.18 M/ L 4.00-5.00 (test code = 761) HEMOGLOBIN (BEAKER) (test code = 12.8 GM/DL 12.0-15.0 410) HEMATOCRIT (BEAKER) (test code = 38.6 % 36.0-45.0 411) MEAN CORPUSCULAR VOLUME (BEAKER) 92.5 fL 82.0-99.0 (test code = 753) MEAN CORPUSCULAR HEMOGLOBIN 30.7 pg 27.0-33.0 (BEAKER) (test code = 751) MEAN CORPUSCULAR HEMOGLOBIN CONC 33.2 GM/DL 32.0-36.0 (BEAKER) (test code = 752) RED CELL DISTRIBUTION WIDTH 14.0 % 10.3-14.2 (BEAKER) (test code = 412) PLATELET COUNT (BEAKER) (test 165 K/CU MM 150-430 code = 756) MEAN PLATELET VOLUME (BEAKER) 9.0 fL 6.5-10.5 (test code = 754) NUCLEATED RED BLOOD CELLS 0 /100 WBC 0-0 (BEAKER) (test code = 413) NEUTROPHILS RELATIVE PERCENT 66 % (BEAKER) (test code = 429) LYMPHOCYTES RELATIVE PERCENT 26 % (BEAKER) (test code = 430) MONOCYTES RELATIVE PERCENT 6 % (BEAKER) (test code = 431) EOSINOPHILS RELATIVE PERCENT 1 % (BEAKER) (test code = 432) BASOPHILS RELATIVE PERCENT 1 % (BEAKER) (test code = 437) NEUTROPHILS ABSOLUTE COUNT 6.84 K/ L 1.80-8.00 (BEAKER) (test code = 670) LYMPHOCYTES ABSOLUTE COUNT 2.63 K/ L 1.48-4.50 (BEAKER) (test code = 414) MONOCYTES ABSOLUTE COUNT (BEAKER) 0.61 K/ L 0.00-1.30 (test code = 415) EOSINOPHILS ABSOLUTE COUNT 0.15 K/ L 0.00-0.50 (BEAKER) (test code = 416) BASOPHILS ABSOLUTE COUNT (BEAKER) 0.08 K/ L 0.00-0.20 (test code = 417) 0.00
[2021-10-14 00:26] LABS: Urine Blood 3+ (Negative); Urine Glucose Negative (Negative); Urine Protein Negative (Negative); Urine Specific Gravity 1.015 (1.005-1.030); Urine pH 5.5 (5.0-7.0)
[2021-10-14] MEDS ORDERED: PHENAZOPYRIDINE 100MG TAB PO ONE (01:01)
--- NOTE | 2021-10-14 01:01 | ER ---
Nurse's Notes [facility] Name: Madison Thornton Age: 71 yrs Sex: Female : 1950 Arrival Date: 10/13/2021 Time: 23:31 Bed 6 Private MD: Diagnosis: UTI/ Urinary tract infection, site not specified Presentation: 10/14 00:02 Chief complaint: Patient states: pt exp urinary urgency frequency and burning started mr2 around 6pm. Denies, fever, chills, nvd. denies flank pain. Coronavirus screen: Vaccine status: Patient reports receiving the 2nd dose of the covid vaccine. Ebola Screen: No symptoms or risks identified at this time. Initial Sepsis Screen: Does the patient meet any 2 criteria? No. Patient's initial sepsis screen is negative. Does the patient have a suspected source of infection? No. Patient's initial sepsis screen is negative. Risk Assessment: Do you want to hurt yourself or someone else? Patient reports no desire to harm self or others. Onset of symptoms was October 13, 2021 at 18:00. 00:02 Method Of Arrival: Ambulatory mr2 00:02 Acuity: SEBASTIEN 3 mr2 Triage Assessment: 00:10 General: Appears in no apparent distress. Behavior is calm, cooperative. Pain: mr2 Complains of pain in meatus Pain does not radiate. Pain currently is 5 out of 10 on a pain scale. Quality of pain is described as burning. Historical: - Home Meds: 00:09 levothyroxine 88 mcg tab 1 tab once daily [Active]; meclizine 12.5 mg Oral tab 1 tabs 3 mr2 times per day [Active]; midodrine 5 mg Oral tab 1 tabs 3 times per day [Active]; - PMHx: 00:09 Hypothyroidism; Orthostatic hypotension; mr2 - Immunization history:: Adult Immunizations up to date. - Social history:: Smoking status: Patient denies any tobacco usage or history of. Screenin:27 Abuse screen: Denies threats or abuse. Nutritional screening: No deficits noted. as6 Tuberculosis screening: No symptoms or risk factors identified. Fall Risk None identified. Assessment: 00:18 General: Appears in no apparent distress. comfortable, Behavior is calm, cooperative. as6 Pain: Denies pain. Neuro: Level of Consciousness is awake, alert, obeys commands, Oriented to person, place, time, situation. Cardiovascular: Capillary refill < 3 seconds Patient's skin is warm and dry. Respiratory: Airway is patent Trachea midline Respiratory effort is even, unlabored, Respiratory pattern is regular, symmetrical. : Reports urgency, urinary frequency. Derm: Skin is intact, is healthy with good turgor. Vital Signs: 00:02 BP 167 / 77; Pulse 61; Resp 17; Temp 97.8; Pulse Ox 100% on R/A; Weight 65.77 kg; mr2 Height 5 ft. 2 in. (157.48 cm); Pain 5/10; 01:22 BP 173 / 86; Pulse 60; Resp 20 S; Pulse Ox 100% on R/A; as6 00:02 Body Mass Index 26.52 (65.77 kg, 157.48 cm) mr2 ED Course: 10/13 23:31 Patient arrived in ED. 10/14 00:08 Mello Atkinson, RN is Primary Nurse. as6 00:09 Triage completed. mr2 00:10 Crow Butler MD is Attending Physician. 7 00:12 Arm band placed on. mr2 00:28 Call light in reach. Side rails up X 1. Adult w/ patient. Pulse ox on. NIBP on. as6 01:25 No provider procedures requiring assistance completed. Patient did not have IV access as6 during this emergency room visit. Administered Medications: 01:04 Drug: cefUROXime 250 mg Route: PO; as6 01:26 Follow up: Response: No adverse reaction as6 01:04 Drug: Pyridium (phenazopyridine) 200 mg Route: PO; as6 01:26 Follow up: Response: No adverse reaction as6 Outcome: 01:00 Discharge ordered by . mh7 01:25 Discharged to home ambulatory, with significant other. as6 01:25 Condition: stable 01:25 Discharge instructions given to patient, Instructed on discharge instructions, follow up and referral plans. medication usage, Demonstrated understanding of instructions, follow-up care, medications, Prescriptions given X 2. 01:26 Patient left the ED. as6 Signatures: Crow Butler MD MD [facility] Ammy Hankins Eric Call RN RN mr2 [place], [place], RN RN as6
--- NOTE | 2021-10-14 01:01 | EDPHYS ---
Physician Documentation [facility] Name: Madison Thornton Age: 71 yrs Sex: Female : 1950 Arrival Date: 10/13/2021 Time: 23:31 Bed 6 Private MD: ED Physician Crow Butler HPI: 10/14 00:36 This 71 yrs old Female presents to ER via Ambulatory with complaints of Pain With mh7 Urination. 00:36 The patient presents with urinary symptoms, dysuria, frequency, urgency. Onset: The mh7 symptoms/episode began/occurred last night, at 18:00. Modifying factors: The symptoms are alleviated by nothing, the symptoms are aggravated by urinating. Associated signs and symptoms: Pertinent positives: dysuria, hematuria, urinary frequency, Pertinent negatives: constipation, cramping, diarrhea, dyspareunia, fever, nausea, vaginal bleeding, vaginal discharge, vomiting. Severity of symptoms: At their worst the symptoms were mild, last night, in the emergency department the symptoms are unchanged. The patient has experienced similar episodes in the past, multiple times. Historical: - Home Meds: 00:09 levothyroxine 88 mcg tab 1 tab once daily [Active]; meclizine 12.5 mg Oral tab 1 tabs 3 mr2 times per day [Active]; midodrine 5 mg Oral tab 1 tabs 3 times per day [Active]; - PMHx: 00:09 Hypothyroidism; Orthostatic hypotension; mr2 - Immunization history:: Adult Immunizations up to date. - Social history:: Smoking status: Patient denies any tobacco usage or history of. ROS: 00:36 Constitutional: Negative for fever, chills, and weight loss, Eyes: Negative for injury, mh7 pain, redness, and discharge, Neck: Negative for injury, pain, and swelling, Cardiovascular: Negative for chest pain, palpitations, and edema, Respiratory: Negative for shortness of breath, cough, wheezing, and pleuritic chest pain, Abdomen/GI: Negative for abdominal pain, nausea, vomiting, diarrhea, and constipation, Back: Negative for injury and pain, MS/Extremity: Negative for injury and deformity, Skin: Negative for injury, rash, and discoloration, Neuro: Negative for headache, weakness, numbness, tingling, and seizure, Psych: Negative for depression, anxiety, suicide ideation, homicidal ideation, and hallucinations, Allergy/Immunology: Negative for hives, rash, and allergies, Endocrine: Negative for neck swelling, polydipsia, polyuria, polyphagia, and marked weight changes, Hematologic/Lymphatic: Negative for swollen nodes, abnormal bleeding, and unusual bruising. Exam: 00:36 Constitutional: This is a well developed, well nourished patient who is awake, alert, mh7 and in no acute distress. Head/Face: Normocephalic, atraumatic. Eyes: Pupils equal round and reactive to light, extra-ocular motions intact. Lids and lashes normal. Conjunctiva and sclera are non-icteric and not injected. Cornea within normal limits. Periorbital areas with no swelling, redness, or edema. Neck: Trachea midline, no thyromegaly or masses palpated, and no cervical lymphadenopathy. Supple, full range of motion without nuchal rigidity, or vertebral point tenderness. No Meningismus. Chest/axilla: Normal chest wall appearance and motion. Nontender with no deformity. No lesions are appreciated. Cardiovascular: Regular rate and rhythm with a normal S1 and S2. No gallops, murmurs, or rubs. Normal PMI, no JVD. No pulse deficits. Respiratory: Lungs have equal breath sounds bilaterally, clear to auscultation and percussion. No rales, rhonchi or wheezes noted. No increased work of breathing, no retractions or nasal flaring. Abdomen/GI: Soft, non-tender, with normal bowel sounds. No distension or tympany. No guarding or rebound. No evidence of tenderness throughout. Back: No spinal tenderness. No costovertebral tenderness. Full range of motion. Skin: Warm, dry with normal turgor. Normal color with no rashes, no lesions, and no evidence of cellulitis. MS/ Extremity: Pulses equal, no cyanosis. Neurovascular intact. Full, normal range of motion. Neuro: Awake and alert, GCS 15, oriented to person, place, time, and situation. Cranial nerves II-XII grossly intact. Motor strength 5/5 in all extremities. Sensory grossly intact. Cerebellar exam normal. Normal gait. Psych: Awake, alert, with orientation to person, place and time. Behavior, mood, and affect are within normal limits. Vital Signs: 00:02 BP 167 / 77; Pulse 61; Resp 17; Temp 97.8; Pulse Ox 100% on R/A; Weight 65.77 kg; mr2 Height 5 ft. 2 in. (157.48 cm); Pain 5/10; 01:22 BP 173 / 86; Pulse 60; Resp 20 S; Pulse Ox 100% on R/A; as6 00:02 Body Mass Index 26.52 (65.77 kg, 157.48 cm) mr2 MDM: 00:58 Differential diagnosis: urinary tract infection, Dysuria, urinary frequency. Data [facility] reviewed: vital signs, nurses notes, lab test result(s), urinalysis. Data interpreted: Pulse oximetry: on room air is 100 %. Interpretation: normal. Counseling: I had a detailed discussion with the patient and/or guardian regarding: the historical points, exam findings, and any diagnostic results supporting the discharge/admit diagnosis, lab results, the need for outpatient follow up. 01:00 Patient medically screened. [facility] 10/14 00:26 Order name: Urine Dipstick-Ancillary; Complete Time: 00:28 EDAR 10/14 00:35 Order name: Urine Microscopic Only; Complete Time: 01:26 [facility] 10/14 00:13 Order name: Urine Dipstick-Ancillary (obtain specimen); Complete Time: 00:27 as6 10/14 00:35 Order name: Urine Culture [facility] Administered Medications: 01:04 Drug: cefUROXime 250 mg Route: PO; as6 01:26 Follow up: Response: No adverse reaction as6 01:04 Drug: Pyridium (phenazopyridine) 200 mg Route: PO; as6 01:26 Follow up: Response: No adverse reaction as6 Disposition Summary: 10/14/21 01:00 Discharge Ordered Location: Home [facility] Problem: an acute exacerbation [facility] Symptoms: have improved [facility] Condition: Stable [facility] Diagnosis - UTI/ Urinary tract infection, site not specified [facility] Followup: [facility] - With: Private Physician - When: 1 - 2 days - Reason: Worsening of condition, Recheck today's complaints, Continuance of care, Re-evaluation by your physician Discharge Instructions: - Discharge Summary Sheet [facility] - Urinary Tract Infection, Adult, [id number] [facility] Forms: - Medication Reconciliation Form [facility] - Thank You Letter [facility] - Antibiotic Education mh7 - Prescription Opioid Use [facility] Prescriptions: - cefuroxime axetil 250 mg Oral tablet - take 1 tablet by ORAL route every 12 hours for 10 days; 20 tablet; Refills: 0, [facility] Product Selection Permitted - Pyridium 200 mg Oral Tablet - take 1 tablet by ORAL route every 8 hours for 2 days; 6 tablet; Refills: 0, [facility] Product Selection Permitted Signatures: Dispatcher [employer] Crow Menendez MD MD 7 Eric Call RN RN mr2 Mello Atkinson RN RN as6
[2021-10-14] MEDS ORDERED: CEFUROXIME 250 MG TAB ONE (01:02)
[2021-10-14 01:18] LABS: Urine Bacteria <20 /HPF (<20); Urine RBC 20-50 /HPF (NONE SEEN); Urine Yeast FEW (NONE SEEN)
[2021-10-14 01:31] VITALS: TEMP 97.8; O2SAT 100
[2021-10-14 01:32] VITALS: BP 173/86
== END 2021-10-14 01:26 | disposition home or self-care (01) ==
LOC: ER 23:27
DX: N39.0 Urinary tract infection, site not specified (principal); E03.9 Hypothyroidism, unspecified; I95.1 Orthostatic hypotension
CPT/HCPCS: 81003; 81015; 87086; 87088; 99283

== ENCOUNTER 2021-11-15 06:55 | Day surgery (SDC) | payer OTHER ==
[2021-11-15] MEDS ORDERED: COSYNTROPIN 0.25 MG VIAL IV ONE (08:00)
[2021-11-15 08:42] VITALS: BMI 26.3
[2021-11-15 10:59] VITALS: BP 126/57; TEMP 98.6; O2SAT 98
== END 2021-11-15 09:50 | disposition home or self-care (01) ==
LOC: DS 06:55
PROVIDERS: ATTEND Internal Medicine
DX: E87.1 Hypo-osmolality and hyponatremia (principal)
CPT/HCPCS: 36415; 82533 ×4; 82024; J0834